=== PATIENT | female | born 1990 | race African-American/Black ===

== ENCOUNTER 2017-08-10 11:38 | Emergency (ER) | payer OTHER | END 2017-08-10 12:10 | disposition home or self-care (01) | LOC: SCSER 11:38 | DX: H60.91 Unspecified otitis externa, right ear (principal) | CPT/HCPCS: 99282 ==

== ENCOUNTER 2017-12-13 02:05 | Inpatient (IN) | payer OTHER ==
[2017-12-13] MEDS ORDERED: Morphine 4 MG/ML VIAL ONE (03:35)
[2017-12-13] MEDS ORDERED: Bisacodyl 5 MG TAB PO PRN (05:04)
[2017-12-13 05:29] VITALS: BMI 29.8
[2017-12-13] MEDS: Piperacillin/Tazobactam 3.375 GM in Sodium Chloride 0.9% 100 ML IVPB SCH ×4 (05:54→23:37)
--- NOTE | 2017-12-13 07:02 | HP ---
PRIMARY CARE PROVIDER: Spring Yuen M.D. CHIEF COMPLAINT: Abdominal pain. HISTORY OF PRESENT ILLNESS: Ms. Gaston is a pleasant 27-year-old lady who was seen at [facility] on 12/13/2017. She does not have any significant past medical history. She reports that in 09/2017, she had pneumon ia. She was advised to get a chest x-ray after treatment of pneumonia to ensure resolution. However , she did not get a repeat chest x-ray done. She was seen by her primary care provider recently and went on to have a chest x-ray on 11/28/2017. It showed dense confluent infiltrate/consolidation in t he right middle lobe. Because of the chest x-ray, she went on to have CT scan of the chest on 2017 with IV contrast, which showed large right hilar mass with postobstructive atelectasis involving primarily the right middle lobe, mediastinal adenopathy, possible liver metastases, small left pleur al effusion and a small amount of free fluid in the upper abdomen. She was seen by Pulmonology Service, Dr. Barclay yesterday. She reports that she is supposed to have a tap of pleural fluid done at 8:00 a.m. today. She went to the emergency room yesterday because of abdominal pain. She reports that over the last o ne week, she has had right upper quadrant abdominal pain, on and off, 7/10 at its worst, occasionally radiating to the lower back, not accompanied by nausea or vomiting. She reports having on and off d iarrhea. She also reports having fevers over the last 2 days and reports that her temperatures were in the 99-100 degrees Fahrenheit range. She denies any chest pain or shortness of breath. REVIEW OF SYSTEMS: All other systems reviewed and found to be negative. PAST MEDICAL HISTORY: None. PAST SURGICAL HISTORY: None. SOCIAL HISTORY: Patient reports occasional alcohol use, denies tobacco use or recreational drug use. FAMILY HISTORY: She denies family history of premature coronary artery disease. ALLERGIES: No known drug allergies. CURRENT MEDICATIONS: None. PHYSICAL EXAMINATION: GENERAL: On examination, Ms. Gaston is awake and alert, not in acute distress. VITAL SIGNS: Blood pressure is 107/70, pulse is 99, she is breathing at rate of 22 and saturating 97 % on room air. She is afebrile. When she presented to the emergency room, she had pulse of 107 and respiratory rate of 21. EYES: No scleral icterus. No conjunctival pallor. ENT: Moist mucosal membranes, no oropharyngeal erythema or exudates. NECK: Supple, nontender, normal range of movement. Trachea is midline. RESPIRATORY: Accessory muscles of breathing are not active. Chest wall movements are symmetric bila terally. LUNGS: Clear to auscultation without wheeze, rhonchi or crepitations. CARDIOVASCULAR: S1 and S2 are heard, regular. Peripheral pulses are palpable. No carotid bruit, no pericardial rub. ABDOMEN: Distended, mild right upper quadrant tenderness, no guarding or rigidity, bowel sounds hear d. SKIN: No rashes or subcutaneous nodules. NEUROLOGIC: Cranial nerves II-XII intact. Deep tendon reflexes are 2+. MUSCULOSKELETAL: Power is 5/5 in all 4 extremities. LYMPHATIC: No cervical lymphadenopathy. PSYCHIATRIC: Normal mood, normal affect, patient is oriented to person, place, and time. IMAGING DATA AND LABORATORY DATA: Ms. Gaston's labs and investigations were reviewed. She had CT sca n of the abdomen and pelvis, which showed moderate ascites, worsening right perihilar pulmonary infil trate and small left pleural effusion. She also had chest x-ray, which did not show any evidence of acute cardiopulmonary disease. She has white count of 3,300, hemoglobin decreased at 10.8, platelet count elevated at 514,000, 33% neutrophils, 36% band neutrophils, 1% metamyelocytes, 2% myelocytes, u nremarkable comprehensive metabolic profile, negative serum test. Urinalysis was positive for protein, blood, and squamous epithelial cells. HIV 1 and 2 antigen and antibody tests were nonre active. ASSESSMENT AND PLAN: Ms. Gaston is a pleasant 27-year-old lady who was seen at [facility] on 12/13/2017. Her problem list includes: 1. Sepsis: Her presentation is consistent with sepsis, suspected source of infection in the lung. She will be admitted to the hospital for further management. 2. Pneumonia: The patient has received a dose of Zosyn, which I will continue. Pulmonology Service is being consulted regarding lung mass. 3. Lung mass: Differential is wide at this point, await recommendations and further testing. 4. Hematologic abnormalities: She has myelocytes and metamyelocytes as well as band neutrophil elev ation, likely secondary to infection. I will await Oncology Service input. Many thanks for allowing me to participate in your patient's care. Please feel free to contact me wi th any questions or concerns. LEVEL OF RISK: Moderate. LEVEL OF COMPLEXITY: Moderate.
--- NOTE | 2017-12-13 08:13 | CON ---
DATE OF SERVICE: 12/12/2017 SERVICE: Pulmonary Medicine. REASON FOR CONSULTATION: Mediastinal lymphadenopathy. HISTORY OF PRESENT ILLNESS: The patient is a 27-year-old -[place] female with past medical history significant for essentially nothing until September of this year. She presented to the hospital with a fairly abrupt onset of fevers, chills, cough, congestion, and just in general not feeling very good. She got a chest x-ray demonstrating a left-sided infiltrate. She was treated for pneumonia. She was supposed to get a followup chest x-ray a couple of weeks later, but was subsequently lost to followup. Either way, she had a repeat chest x-ray that was done here just recently. On that, there was a right middle lobe pneumonia. She ended up getting a CT scan of the chest. On the CT of the chest, there was evidence of multiple abnormalities, which are discussed below. She has had a 30-pound weight loss over the past 2 months, lack of appetite. She has no personal history of cancer. She had not been having any night sweats or hemoptysis. She is, otherwise, in her usual state of health except for some abdominal discomfort that started after she started taking ibuprofen for a different issue. She has not noticed any lumps or bumps showing up anywhere in her body. PAST MEDICAL HISTORY: None. PAST SURGICAL HISTORY: None. FAMILY HISTORY: Noncontributory. She specifically denies any cancer or chronic lung problems in primary family relatives. She has no children. SOCIAL HISTORY: Negative for alcohol, tobacco, or illicit drug use. 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 She works with somebody who uses vapor in the cab of the car. That being said, she , otherwise, has no specific exposures. She denies exposure to chemicals, dust , asbestos, or tuberculosis. REVIEW OF SYSTEMS: General, head, ears, eyes, nose, throat, cardiovascular, respiratory, GI, , musculoskeletal, neurologic, and skin is negative except as mentioned in the HPI. ALLERGIES: No known drug allergies. MEDICATIONS: None. PHYSICAL EXAMINATION: VITAL SIGNS: Afebrile, pulse 120, respirations 15, saturation 98% on room air. GENERAL: The patient is awake and alert, in no apparent distress. LUNGS: Decent air entry bilaterally. There is no prolonged expiratory phase or wheezing appreciated. I cannot appreciate any dullness to percussion at the left base compared to the right. HEART: Tachycardic, regular. ABDOMEN: Soft. Diffusely tender to palpation, but it is a little worse in the epigastric region. Bowel sounds are hypoactive. MUSCULOSKELETAL: No cyanosis or clubbing. There is no pitting in the bilateral lower extremities. NEUROLOGIC: Grossly nonfocal. GENITOURINARY: No Khan. LYMPHADENOPATHY: Evaluation for cervical lymphadenopathy, axillary lymphadenopathy, and inguinal lymphadenopathy was unremarkable. IMAGING: The CT of the chest demonstrates a large right hilar mass, which likely represents lymphadenopathy resulting in compression of the right middle lobe. There is postobstructive atelectasis and/or pneumonia in that region. There is also significant mediastinal lymphadenopathy in the subcarinal and anterior tracheal areas. I do not see any specific pleural parenchymal disease , though there is a left-sided pleural effusion, which is fairly small and free flowing. There is a small amount of free-flowing fluid in the partially visualized upper abdomen. There is also a 0.8 cm diameter low density lesion in the liver. This cannot be further characterized on the basis of this study. ASSESSMENT: 1. Mediastinal lymphadenopathy. 2. Pleural effusion, not otherwise specified. 3. Pulmonary infiltrate in the right middle lobe. 4. Abdominal pain. DISCUSSION AND PLAN: The patient has already decided to go to the emergency department for her abdominal pain. As such, we will not juice standardizer her way. We are going to start with a thoracentesis. We will wait for the cytology results to come back from that. We will empirically start her on some antibiotics. We will check laboratories including a QuantiFERON gold, HIV, and [id number]. She will return to clinic next week to review the results of the cytology. If these are unremarkable, she will likely need to undergo an endoscopic bronchial ultrasound and/or a routine bronchoscopy for sampling procedures. Her differential remains wide, but top of our differential includes infectious issues and neoplastic issues. Sarcoid or other inflammatory issues remain a distant possibility. 70 minutes have been devoted to this patient in various activities. I personally reviewed all imaging studies and laboratory data noted within this document. For fifty percent of this time, I was interacting with the patient at the bedside or coordinating care with the care team. For the remainder of the time I was immediately available to the patient in the hospital unit. ORALIA
[2017-12-13] MEDS: Morphine 4 MG/ML VIAL IV PRN ×2 (09:20→16:22)
[2017-12-13] MEDS: Enoxaparin Sodium 40 MG/0.4 ML SYRINGE SC SCH (09:24)
[2017-12-13] MEDS: Acetaminophen 325 MG TAB PO PRN ×2 (09:32→21:01)
--- NOTE | 2017-12-13 10:42 | CON ---
REASON FOR CONSULTATION: Lung mass. HISTORY OF PRESENT ILLNESS: Ms. Gaston is a pleasant 27-year-old - [place]one[place] female who presented to her primary care with fever, cough and shortness of breath. She has chest x-ray done which showed dense infiltrate of the right middle lobe. She was started on antibiotics. She then had a CT scan of her chest, which showed 3.9 x 3.9 x 3 cm right hilar mass. She had postobstructive atelectasis of the right middle lobe. There was mediastinal adenopathy and a small left pleural effusion. She saw Dr. Barclay on and the plan was thoracentesis for this morning; however, she began to have abdominal discomfort, so went to the emergency room for evaluation. She had abdominal and pelvis CT, which showed no liver abnormality. She had a right kidney cyst and unremarkable spleen. She did have moderate ascites. Her reproductive organs were unremarkable. She was admitted for further evaluation. The patient admits to intermittent fevers over the last few days. She currently has temperature of 102.2. She denies any night sweats prior to development of fever. She admits to 30-pound weight loss since September. She denies any chest pain or shortness of breath. No nausea, vomiting, diarrhea or constipation. She denies any abnormal vaginal bleeding. Denies pruritus. Her primary complaint is fever and left upper quadrant abdominal pain. PAST MEDICAL HISTORY: None. PAST SURGICAL HISTORY: None. ALLERGIES: No known drug allergies. HOME MEDICATION: Naproxen p.r.n. pain. FAMILY HISTORY: Her grandfather had gastric cancer. No history of breast or ovarian cancer. SOCIAL HISTORY: She is single. No children. Occasional alcohol. Denies tobacco or illicit drug use. REVIEW OF SYSTEMS: Twelve-point review of systems is negative per HPI. PHYSICAL EXAMINATION: VITAL SIGNS: Temperature is 102.2, pulse is 101, respiratory rate 20, BP is 103 /56. She is 99% on room air. GENERAL: Well-developed, well-nourished female in no acute distress. HEENT: Normocephalic, atraumatic. Pupils equal and reactive to light. NECK: Supple. CARDIOVASCULAR: Regular rate and rhythm. LUNGS: Clear but diminished at the right base. ABDOMEN: Distended. Bowel sounds are positive. EXTREMITIES: No clubbing, cyanosis or edema. SKIN: No rash. HEMATOLOGIC: No petechia or purpura. NEUROLOGIC: Nonfocal. PSYCHIATRIC: The patient is alert and oriented and appropriate. PERTINENT LABORATORY DATA AND IMAGING DATA: Current WBCs are 3.3, hemoglobin 10.8, hematocrit 35.4, platelet count is 514,000. She has 33% neutrophils, 36% bands, 25% lymphocytes. She has 1% metamyelocytes and 2% myelocytes. Sodium is 136, potassium 3.8, chloride 104, CO2 is 23, BUN is 7, creatinine 0.84. Lactic acid is 1, calcium is 8.6, total bilirubin is 0.5, AST is 23, ALT is 18, alkaline phosphatase is 65. Serum total protein is 7.3, albumin 3.2, globulin is 4, lipase is 37, serum is negative. UA is negative. HIV is negative. Radiology per HPI. ASSESSMENT: 1. Right hilar mass with mediastinal adenopathy. 2. Postobstructive pneumonia with fever. 3. New onset ascites. 4. Left pleural effusion. DISCUSSION: Case was discussed with Dr. Krishnamurthy. Differential includes lung cancer, lymphoma or infectious process. Plan is for either a paracentesis or thoracentesis this morning for cytology and cell block. We will check a flow cytometry, peripheral smear, LDH, uric acid and CEA. Further workup will be based on the results of the lab and cytology. Thank you for the consult. We will follow her hospitalization. ORALIA
[2017-12-13 11:13] LABS: Uric Acid 3.4 mg/dL (2.6-6.0)
[2017-12-13 12:26] LABS: Band 14 % (5-11); Eosinophils 2 % (0-10); Hemoglobin 10.4 g/dL (12.0-16.0); Lymphocytes 9 % (21-51); MDiff Complete? YES; Mean Corpuscular HGB CONC 33.1 g/dL (32.0-36.0); Mean Corpuscular Volume 81.4 fl (81.0-99.0); Mean Platelet Volume 6.1 fL (7.4-10.4); Monocytes 8 % (0-10); Neutrophil 65 % (42-75); PLT Morphology Comment Appears Increased; Platelet Count 450 thou/uL (130-400); Polychromasia SLIGHT = 2-3 cells (100X) (0-2/hpf); RBC Distribution Width 12.9 % (11.5-14.5); Reactive Lymphocytes 2 % (0-10); Red Blood Cell (RBC) Count 3.86 mill/uL (4.20-5.40); White Blood Cell (WBC) Count 3.6 thou/uL (4.8-10.8)
[2017-12-13] MEDS ORDERED: Lidocaine 1% (PF) 30 ML VIAL ONE (17:03)
--- NOTE | 2017-12-13 19:39 | CON ---
DATE OF CONSULTATION: 12/13/2017 SERVICE: Pulmonary Medicine. REASON FOR CONSULTATION: Pleural effusion, mediastinal lymphadenopathy, infiltrate. HISTORY OF PRESENT ILLNESS: The patient is a 27-year-old female with recent history of a community-acquired pneumonia in left upper lobe. She got course of antibiotic. She supposed to have repeat imaging, but did end up getting this. A couple of months later, she started having some cough and congestion again with pleuritic type chest discomfort. A repeat chest x-ray was done demonstrating a right middle lobe pneumonia this time around. She underwent a CT evaluation. She had widespread mediastinal lymphadenopathy, small pleural effusion, on the left, and also a postobstructive type of pneumonia. It did not look like there is any discrete endobronchial disease identified, however. Ultimately, she saw me in clinic yesterday. She was having some abdominal discomfort and had intended to go to the emergency department. I am truthfully surprised that she ended up being admitted to the hospital. That being said, she is here and so we will continue outpatient investigation. PAST MEDICAL HISTORY: None. PAST SURGICAL HISTORY: None. SOCIAL HISTORY: Negative for alcohol, tobacco or illicit drug use. She has no exposure to chemicals, dusts, asbestos or tuberculosis. 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 The person that she rides with frequently smokes vapor in the cab. ALLERGIES: No known drug allergies. MEDICATIONS: List of her inpatient medications were reviewed. No specific updates were made at this time. REVIEW OF SYSTEMS: General, head, ears, eyes, nose, throat, cardiovascular, respiratory, GI, , musculoskeletal, neurologic and skin is negative except as mentioned in the HPI. PHYSICAL EXAMINATION: VITAL SIGNS: The T-max 102.2, pulse 100, blood pressure 104/74, respirations 18 , saturation 100% on room air. GENERAL: The patient is awake and alert, no apparent distress. LUNGS: Decent air entry. There is no prolonged expiratory phase, wheezing, rhonchi, or crackles present. HEART: Normal rate, regular. ABDOMEN: Soft. Tender to palpation. There is no rebound or guarding. MUSCULOSKELETAL: No cyanosis or clubbing. There is no pitting in the bilateral lower extremities. NEUROLOGIC: Grossly nonfocal. LABORATORY DATA: WBC 3.6, hemoglobin 10.4, platelets 450,000. Band count is 14 %. CEA is 1.42, LDH is elevated, uric acid level is normal. Basic metabolic profile and liver function studies are essentially unremarkable. BNP is normal. Lipase is normal. Serum is also unremarkable. Urinalysis is unremarkable. HIV 1 and [address] of the abdomen and pelvis demonstrates ascites, but otherwise no acute intra-abdominal abnormality other than a small lesion in the liver. 2. Recent CT of the chest demonstrates mediastinal lymphadenopathy, small left- sided pleural effusion, and an infiltrate that appears to be a postobstructive. I am looking for endobronchial disease, but it looks like it is more of an extrinsic compression of the airway resulting in the infiltrate. ASSESSMENT: 1. Mediastinal lymphadenopathy. 2. Right middle lobe atelectasis with possible postobstructive pneumonia. 3. Left-sided pleural effusion, small. 4. Ascites. 5. Liver cyst, small. 6. Abdominal pain. PLAN: The patient's HIV was unremarkable. She had a T-spot that is currently pending. We will proceed with paracentesis. We carefully send this for AFB smear and culture, fungal stain and culture, routine Gram stain and culture, and cytology. Multiple other studies can be done if necessary. If this is unremarkable, bronchoscopy will be done. We will look for any intrinsic disease of the airway. If not seen, we will need to refer her for mediastinoscopy. Pulmonary Critical Care will continue to follow along in this location. 70 minutes have been devoted to this patient in various activities. I personally reviewed all imaging studies and laboratory data noted within this document. For fifty percent of this time, I was interacting with the patient at the bedside or coordinating care with the care team. For the remainder of the time I was immediately available to the patient in the hospital unit. ORALIA
[2017-12-13 20:15] LABS: Fluid, Protein 4.8 g/dL (Not Available)
[2017-12-13 20:21] LABS: BF Color Yellow; Body Fluid Source PERITONEAL FLUID; Clarity Hazy (Clear); Tube # EDTA; WBC Background Count 0.01
[2017-12-13 20:22] LABS: WBC/NonHematic-Auto 1800 /cumm
[2017-12-13 20:25] LABS: BF RBC Count - Manual 5175 /cumm
[2017-12-13 20:47] LABS: BF Segmented Neutrophils 18 %; Cell Count Non Hematic 29 %; Lymphocytes 50 %
--- NOTE | 2017-12-14 00:37 | OP-2 ---
PARACENTESIS PROCEDURE NOTE INDICATION: Ascites, diagnostic and therapeutic. PROCEDURE STORE STOCKER: Dr. Joseline Morillo. ATTENDING PHYSICIAN: Dr. Mynor Barclay who was in attendance during the entire procedure. Ultrasound was used to sumeet the location prior to procedure and a large pocket of fluid was visualized. CONSENT: Consent was obtained from Ms. Gaston prior to the procedure. Indication, risks and benefits were explained at length. PROCEDURE SUMMARY: A timeout was performed. My hands were washed immediately prior to the procedure. Sterile precautions were taken and sterile gloves were worn throughout the entire procedure. The right lateral aspect of the abdomen was prepped and draped in the sterile fashion using chlorhexidine scrub. Lidocaine 1% was used to numb the skin, soft tissue and peritoneum in a Z-track fashion. The [id number] catheter was inserted using the Z-line technique and advanced with negative pressure until straw colored cloudy fluid was aspirated. Approximately 150 mL of ascitic fluid was collected and sent for laboratory analysis. The catheter was then connected to the drainage bag and an additional 1800 mL of ascitic fluid were drained. The catheter was removed and no leaking fluid was noted. A Band-Aid was placed over the puncture wound. The patient tolerated the procedure well without any immediate complications. Estimated blood loss was less than 1 mL. Again, Dr. Mynor Barclay was present during the entire procedure. [facility]OO[facility]IAL HOSPITALNikolai
[2017-12-14] MEDS: Acetaminophen 325 MG TAB PO PRN ×2 (05:20→16:05)
[2017-12-14] MEDS: Piperacillin/Tazobactam 3.375 GM in Sodium Chloride 0.9% 100 ML IVPB SCH ×2 (05:20→12:36)
[2017-12-14 05:28] LABS: Anion Gap 10 mmol/L (10-20); BUN (Urea Nitrogen) 8 mg/dL (7.0-18.7); Calc. Creatinine Clearance 148 mL/min (70-130); Calcium 7.9 mg/dL (7.8-10.44); Carbon Dioxide 24 mmol/L (22-29); Chloride 104 mmol/L (98-107); Estimated GFR-MDRD Greater than 90; Glucose 87 mg/dL (70-105); Potassium 3.8 mmol/L (3.5-5.1); Sodium 134 mmol/L (136-145)
[2017-12-14 06:07] LABS: Anisocytosis SLIGHT = 6-15 cells (100X) (0-5/hpf); Band 4 % (5-11); Bite Cells SLIGHT = 2-5 cells (100X) (0-1/hpf); Eosinophils 2 % (0-10); Hemoglobin 10.2 g/dL (12.0-16.0); Lymphocytes 12 % (21-51); MDiff Complete? YES; Mean Corpuscular HGB CONC 32.4 g/dL (32.0-36.0); Mean Corpuscular Hemoglobin 26.3 pg (27.0-31.0); Mean Corpuscular Volume 81.3 fl (81.0-99.0); Mean Platelet Volume 6.2 fL (7.4-10.4); Monocytes 11 % (0-10); Neutrophil 70 % (42-75); Platelet Count 410 thou/uL (130-400); RBC Distribution Width 12.9 % (11.5-14.5); Reactive Lymphocytes 1 % (0-10); Red Blood Cell (RBC) Count 3.87 mill/uL (4.20-5.40); White Blood Cell (WBC) Count 4.2 thou/uL (4.8-10.8)
[2017-12-14] MEDS: Enoxaparin Sodium 40 MG/0.4 ML SYRINGE SC SCH (09:26)
--- NOTE | 2017-12-14 16:37 | PRG ---
DATE OF SERVICE: 12/14/2017 SERVICE: Pulmonary Medicine. INTERVAL HISTORY: The patient is doing fine from a respiratory standpoint. The abdominal sensation improved significantly after she ended up with a paracentesis. We are waiting on results of that fara dy. If this thing is not fruitful, we will proceed with bronchoscopy. We discussed that with the gustavo mitchell today. If we do not get an answer with bronchoscopy, mediastinoscopy will be pursued. She und erstands the plan of action moving forward. PHYSICAL EXAMINATION: VITAL SIGNS: Currently afebrile with a T-max of 102.2. Pulse 98, blood pressure 124/83, respiration s 18, saturation 100% on room air. GENERAL: The patient is awake, alert, no apparent distress. LUNGS: Excellent air entry. No prolonged expiratory phase, wheezing, rhonchi or crackles are apprec iated. HEART: Normal rate and regular. ABDOMEN: Soft. There is no firmness or tenderness. There is no longer distention secondary to asci deepti. Bowel sounds are present. : No Khan. NEUROLOGIC: Grossly nonfocal. LABORATORY DATA: Basic metabolic profile is essentially unremarkable. Serum total protein is 6.7, L DH 381, uric acid 3.4. WBC 4.2, hemoglobin 10.2 and platelets 410,000. Peritoneal fluid is positive for a total protein that is elevated and glucose of 65. There is lymphocyte predominant fluid and t here are multiple nonhematologic cells identified. Body fluid culture is negative to date. Patholog y is currently pending. ASSESSMENT: 1. Mediastinal lymphadenopathy. 2. Right middle lobe atelectasis with possible postobstructive pneumonia. 3. Left-sided pleural effusion, small. 4. Ascites, status post paracentesis. 5. Liver cysts, small. 6. Abdominal pain, resolved with paracentesis. DISCUSSION AND PLAN: We will await the results on the paracentesis. If cytology is unremarkable, a bronchoscopy will be done, but if I do not see any endobronchial disease to biopsy, she will need a m ediastinoscopy. If the pathology is negative on Sunday, we will proceed with bronchoscopy Sunday if she has been without food for long enough time, or Sunday morning. Pulmonary will continue to follow intermittently during this hospital stay.
[2017-12-14] MEDS: Amoxicillin/Potassium Clav 875 MG TAB PO SCH (19:51)
[2017-12-14] MEDS: HYDROcodone/Acetaminophen 7.5/325 mg Tablet PO PRN (23:41)
[2017-12-15] MEDS: HYDROcodone/Acetaminophen 7.5/325 mg Tablet PO PRN ×2 (03:25→15:02)
[2017-12-15] MEDS: Amoxicillin/Potassium Clav 875 MG TAB PO SCH ×2 (08:16→20:31)
[2017-12-15] MEDS: Enoxaparin Sodium 40 MG/0.4 ML SYRINGE SC SCH (08:16)
[2017-12-15] MEDS: Acetaminophen 325 MG TAB PO PRN ×2 (11:28→20:31)
--- NOTE | 2017-12-15 11:41 | PDOC.PN ---
- Subjective Encounter Start Date: 12/14/17 Encounter Start Time: 12:00 Patient is seen today, alert and oriented. She is wanting to go home, Discussed with mother at bedside, pt will need Clearance from Pulmonary as there is plan for bronchoscopy. - Objective MAR Reviewed: Yes Vital Signs & Weight: Vital Signs (12 hours) Temp Pulse Resp BP BP Pulse Ox 12/15/17 11:29 102.5 F H 12/15/17 07:34 97.6 F 94 18 109/75 100 12/15/17 04:00 98.6 F 94 16 12/15/17 00:00 99.5 F 110 H 18 115/78 99 Weight Admit Weight 196 lb 3.382 oz Weight 196 lb 3.382 oz I&O: 12/14/17 12/15/17 12/16/17 06:59 06:59 06:59 Intake Total 390 Balance 390 Result Diagrams: 12/14/17 04:39 12/14/17 04:39 Radiology Reviewed by me: Yes Phys Exam - Physical Examination HEENT: PERRLA, moist MMs Neck: no nodes, no JVD Respiratory: no wheezing, no rales Cardiovascular: RRR, no significant murmur Gastrointestinal: soft, non-tender Musculoskeletal: no edema, pulses present Dx/Plan (1) Post obstructive pneumonia Status: Acute Comment: PT is On IV antibiotics, Will continue at this time, Likely post Obstrutive from Hilar Mass which is highly suggestive of malignanacy until proven otherwise. Blood Cultures pending. (2) Mediastinal lymphadenopathy Code(s): R59.0 - LOCALIZED ENLARGED LYMPH NODES Status: Acute Comment: Dr. vandana villanueva following, TSpot pending to r/o TB, Candido villanueva monitor, plans for bronch on sunday. (3) Sepsis Code(s): A41.9 - SEPSIS, UNSPECIFIED ORGANISM Status: Acute Comment: Stbale on IV antibitoics, on IV fluids. (4) Ascites Code(s): R18.8 - OTHER ASCITES Status: Acute Comment: Following paracentesis , Fluid sent for culture and cytology, pain is better now, less bloated. (5) Abdominal pain Code(s): R10.9 - UNSPECIFIED ABDOMINAL PAIN Status: Acute Comment: Improved now. - Plan cont current plan of care, plan discussed w/ family, continue antibiotics, PT/OT , social economist, respiratory therapy, incentive spirometry, out of bed/ ambulate, DVT proph w/lovenox * . Review of Systems - Review of Systems Constitutional: fever Eyes: negative: Pain, Vision Change, Conjunctivae Inflammation, Eyelid Inflammation, Redness, Other ENT: negative: Ear Pain, Ear Discharge, Nose Pain, Nose Discharge, Nose Congestion, Mouth Pain, Mouth Swelling, Throat Pain, Throat Swelling, Other Respiratory: Cough, Shortness of Breath, SOB with Excertion, Pleuritic Pain Cardiovascular: negative: chest pain, palpitations, orthopnea, paroxysmal nocturnal dyspnea, edema, light headedness, other Gastrointestinal: negative: Nausea, Vomiting, Abdominal Pain, Diarrhea, Constipation, Melena, Hematochezia, Other Musculoskeletal: negative: Neck Pain, Shoulder Pain, Arm Pain, Back Pain, Hand Pain, Leg Pain, Foot Pain, Other - Medications/Allergies Allergies/Adverse Reactions: Allergies Allergy/AdvReac Type Severity Reaction Status Date / Time No Known Drug Allergies Allergy Verified 12/13/17 05:03 Medications: Current Medications Acetaminophen (Tylenol) 650 mg PO Q4H PRN PRN Reason: Headache/Fever or Pain Last Admin: 12/15/17 11:28 Dose: 650 mg Hydrocodone Bitart/Acetaminophen ([place] 7.5/325) 1 tab PO Q4H PRN PRN Reason: Pain Last Admin: 12/15/17 03:25 Dose: 1 tab Amoxicillin/Clavulanate Potassium (Augmentin) 875 mg PO Q12HR [facility] Last Admin: 12/15/17 08:16 Dose: 875 mg Bisacodyl (Dulcolax) 10 mg PO DAILYPRN PRN PRN Reason: Constipation Enoxaparin Sodium (Lovenox) 40 mg SC 0900 [facility] Last Admin: 12/15/17 08:16 Dose: 40 mg Sodium Chloride (Flush - Normal Saline) 10 ml IVF Q12HR [facility] Last Admin: 12/15/17 08:16 Dose: Not Given Sodium Chloride (Flush - Normal Saline) 10 ml IVF PRN PRN PRN Reason: Saline Flush Last Admin: 12/13/17 18:42 Dose: 10 ml
--- NOTE | 2017-12-15 14:05 | PRG ---
DATE OF SERVICE: 12/15/2017 SUBJECTIVE: Ms. Radha Gaston has no complaints. She denies shortness of breath. She has been febri le today. OBJECTIVE: VITAL SIGNS: Heart rate is up to 118 with her fever, it is 94 when she is afebrile, respiratory rate is 22 with her fever, 18 before, room air sats 99, blood pressure is 108/70. LUNGS: Clear. HEART: Regular rhythm. ABDOMEN: Soft and distended. LABORATORY DATA: She has undergone a paracentesis, which shows the fluid to be exudative with protei n of 4.8 grams, glucose is 65 and 5175 red cells. Electrolytes yesterday were unremarkable. White count 4.2, hemoglobin 10.2, platelets 410,000. She has 70% neutrophils, 4% bands yesterday. IMPRESSION AND PLAN: We reviewed CT scan. She has extensive mediastinal lymphadenopathy with more l ymph nodes on the right hilum. I suspect her radiographic abnormalities are secondary to extrinsic c ompression on the right. Pathology on peritoneal fluid is pending. If this is negative, probably th e quickest diagnosis would be a mediastinoscopy. We will continue to follow with the other physician s caring for her.
--- NOTE | 2017-12-15 15:36 | PDOC.PN ---
- Subjective Encounter Start Date: 12/15/17 Encounter Start Time: 13:00 pPatient is seen today, alert and oriented. No other Concerns noted. She is waiitng for bronchoscopy on sunday. - Objective Vital Signs & Weight: Vital Signs (12 hours) Temp Pulse Resp BP Pulse Ox 12/15/17 15:09 98.5 F 109 H 18 108/71 96 12/15/17 11:41 102.6 F H 118 H 22 H 108/70 99 12/15/17 11:29 102.5 F H 12/15/17 07:34 97.6 F 94 18 109/75 100 12/15/17 04:00 98.6 F 94 16 Weight Admit Weight 196 lb 3.382 oz Weight 196 lb 3.382 oz I&O: 12/14/17 12/15/17 12/16/17 06:59 06:59 06:59 Intake Total 390 Balance 390 Result Diagrams: 12/14/17 04:39 12/14/17 04:39 Radiology Reviewed by me: Yes Phys Exam - Physical Examination HEENT: PERRLA, moist MMs Neck: no nodes, no JVD Respiratory: no wheezing, no rales Cardiovascular: no significant murmur Gastrointestinal: soft, non-tender Musculoskeletal: no edema, pulses present Neurological: non-focal, normal sensation Lymphatic: no nodes Psychiatric: normal affect, A&O x 3 Dx/Plan (1) Post obstructive pneumonia Status: Acute Comment: PT is On IV antibiotics, Will continue at this time, Likely post Obstrutive from Hilar Mass which is highly suggestive of malignanacy until proven otherwise. Blood Cultures pending. (2) Mediastinal lymphadenopathy Code(s): R59.0 - LOCALIZED ENLARGED LYMPH NODES Status: Acute Comment: Dr. vandana villanueva following, TSpot pending to r/o TB, Candido villanueva monitor, plans for bronch on sunday. (3) Sepsis Code(s): A41.9 - SEPSIS, UNSPECIFIED ORGANISM Status: Acute Comment: Stbale on IV antibitoics, on IV fluids. (4) Ascites Code(s): R18.8 - OTHER ASCITES Status: Acute Comment: Following paracentesis , Fluid sent for culture and cytology, pain is better now, less bloated. (5) Abdominal pain Code(s): R10.9 - UNSPECIFIED ABDOMINAL PAIN Status: Acute Comment: Improved now. (6) Constipation Code(s): K59.00 - CONSTIPATION, UNSPECIFIED Status: Acute Comment: Will do lactulose 20gm BID. - Plan cont current plan of care, plan discussed w/ family, continue antibiotics, PT/OT , bilingual social worker, incentive spirometry, out of bed/ambulate, DVT proph w/ lovenox * . Review of Systems - Review of Systems Eyes: negative: Pain, Vision Change, Conjunctivae Inflammation, Eyelid Inflammation, Redness, Other ENT: negative: Ear Pain, Ear Discharge, Nose Pain, Nose Discharge, Nose Congestion, Mouth Pain, Mouth Swelling, Throat Pain, Throat Swelling, Other Respiratory: negative: Cough, Dry, Shortness of Breath, Hemoptysis, SOB with Excertion, Pleuritic Pain, Sputum, Wheezing Cardiovascular: negative: chest pain, palpitations, orthopnea, paroxysmal nocturnal dyspnea, edema, light headedness, other Gastrointestinal: negative: Nausea, Vomiting, Abdominal Pain, Diarrhea, Constipation, Melena, Hematochezia, Other - Medications/Allergies Allergies/Adverse Reactions: Allergies Allergy/AdvReac Type Severity Reaction Status Date / Time No Known Drug Allergies Allergy Verified 12/13/17 05:03 Medications: Current Medications Acetaminophen (Tylenol) 650 mg PO Q4H PRN PRN Reason: Headache/Fever or Pain Last Admin: 12/15/17 11:28 Dose: 650 mg Hydrocodone Bitart/Acetaminophen ([place] 7.5/325) 1 tab PO Q4H PRN PRN Reason: Pain Last Admin: 12/15/17 15:02 Dose: 1 tab Amoxicillin/Clavulanate Potassium (Augmentin) 875 mg PO Q12HR [facility] Last Admin: 12/15/17 08:16 Dose: 875 mg Bisacodyl (Dulcolax) 10 mg PO DAILYPRN PRN PRN Reason: Constipation Enoxaparin Sodium (Lovenox) 40 mg SC 0900 [facility] Last Admin: 12/15/17 08:16 Dose: 40 mg Lactulose (Lactulose) 20 gm PO BID [facility] Sodium Chloride (Flush - Normal Saline) 10 ml IVF Q12HR [facility] Last Admin: 12/15/17 08:16 Dose: Not Given Sodium Chloride (Flush - Normal Saline) 10 ml IVF PRN PRN PRN Reason: Saline Flush Last Admin: 12/13/17 18:42 Dose: 10 ml
[2017-12-16] MEDS: HYDROcodone/Acetaminophen 7.5/325 mg Tablet PO PRN ×3 (00:32→20:56)
[2017-12-16] MEDS: Acetaminophen 325 MG TAB PO PRN ×2 (08:35→16:57)
[2017-12-16] MEDS: Enoxaparin Sodium 40 MG/0.4 ML SYRINGE SC SCH (08:35)
[2017-12-16] MEDS: Amoxicillin/Potassium Clav 875 MG TAB PO SCH ×2 (08:35→20:56)
[2017-12-16] MEDS ORDERED: Sodium Chloride 0.9% 1,000 ML IV SCH (10:45)
--- NOTE | 2017-12-16 12:43 | PRG ---
DATE OF SERVICE: 12/16/2017 SUBJECTIVE: Ms. Gaston has no more complaints. She is still having intermittent temperature spikes. OBJECTIVE: VITAL SIGNS: Heart rate is 109, respiratory rate is 18. She gets tachycardic when she is febrile. Oximetry is 97% on room air. Blood pressure 118/78. LUNGS: Clear. CARDIOVASCULAR: Regular rhythm. ABDOMEN: Still distended, nontender. We are awaiting peritoneal fluid pathology. If negative, the workup will continue.
--- NOTE | 2017-12-16 16:55 | PDOC.PN ---
- Subjective Encounter Start Date: 12/16/17 Encounter Start Time: 17:03 Patient seen and examined today. Admitted for hilar mass/post obstructive PNA. - Objective Vital Signs & Weight: Vital Signs (12 hours) Temp Pulse Resp BP BP Pulse Ox 12/16/17 11:52 99.5 F 109 H 18 118/78 97 12/16/17 08:00 99.5 F 109 H 18 105/71 97 Weight Admit Weight 196 lb 3.382 oz Weight 196 lb 3.382 oz I&O: 12/15/17 12/16/17 12/17/17 06:59 06:59 06:59 Intake Total 480 Balance 480 Result Diagrams: 12/14/17 04:39 12/14/17 04:39 Phys Exam - Physical Examination Constitutional: NAD HEENT: PERRLA, moist MMs, sclera anicteric, oral pharynx no lesions Neck: supple, full ROM Respiratory: no wheezing, no rales, no rhonchi, clear to auscultation bilateral Cardiovascular: RRR, no significant murmur, no rub Gastrointestinal: soft, non-tender, no distention, positive bowel sounds Musculoskeletal: no edema, pulses present Neurological: non-focal, moves all 4 limbs Dx/Plan (1) Post obstructive pneumonia Status: Acute Comment: Stable. Continue PO antibiotics. (2) Ascites Code(s): R18.8 - OTHER ASCITES Status: Acute Qualifiers: Ascites type: other type Qualified Code(s): R18.8 - Other ascites Comment: Following paracentesis, Fluid sent for culture and cytology, pain is better now, less bloated. (3) Constipation Code(s): K59.00 - CONSTIPATION, UNSPECIFIED Status: Resolved (4) Mediastinal lymphadenopathy Code(s): R59.0 - LOCALIZED ENLARGED LYMPH NODES Status: Acute Comment: Dr. vandana villanueva following, TSpot pending to r/o TB, Candido villanueva monitor, plans for bronch on sunday. - Plan cont current plan of care, continue antibiotics, respiratory therapy Awaiting Bronchoscopy- scheduled for tomorrow. Review of Systems - Medications/Allergies Allergies/Adverse Reactions: Allergies Allergy/AdvReac Type Severity Reaction Status Date / Time No Known Drug Allergies Allergy Verified 12/13/17 05:03 Medications: Current Medications Acetaminophen (Tylenol) 650 mg PO Q4H PRN PRN Reason: Headache/Fever or Pain Last Admin: 12/16/17 08:35 Dose: 650 mg Hydrocodone Bitart/Acetaminophen ([place] 7.5/325) 1 tab PO Q4H PRN PRN Reason: Pain Last Admin: 12/16/17 12:44 Dose: 1 tab Amoxicillin/Clavulanate Potassium (Augmentin) 875 mg PO Q12HR [facility] Last Admin: 12/16/17 08:35 Dose: 875 mg Bisacodyl (Dulcolax) 10 mg PO DAILYPRN PRN PRN Reason: Constipation Enoxaparin Sodium (Lovenox) 40 mg SC 0900 [facility] Last Admin: 12/16/17 08:35 Dose: 40 mg Lactulose (Lactulose) 20 gm PO BID [facility] Last Admin: 12/16/17 08:36 Dose: Not Given Sodium Chloride (Flush - Normal Saline) 10 ml IVF Q12HR [facility] Last Admin: 12/16/17 08:36 Dose: Not Given Sodium Chloride (Flush - Normal Saline) 10 ml IVF PRN PRN PRN Reason: Saline Flush Last Admin: 12/13/17 18:42 Dose: 10 ml
[2017-12-16] MEDS ORDERED: traMADol HCl 50 MG TAB PO PRN (19:40)
[2017-12-16] MEDS ORDERED: Ibuprofen 800 MG TAB PO SCH (20:00)
[2017-12-17] MEDS: HYDROcodone/Acetaminophen 7.5/325 mg Tablet PO PRN ×2 (03:18→15:12)
[2017-12-17 04:50] LABS: Anion Gap 12 mmol/L (10-20); BUN (Urea Nitrogen) 8 mg/dL (7.0-18.7); Calc. Creatinine Clearance 167 mL/min (70-130); Calcium 8.4 mg/dL (7.8-10.44); Carbon Dioxide 25 mmol/L (22-29); Chloride 102 mmol/L (98-107); Estimated GFR-MDRD Greater than 90; Glucose 108 mg/dL (70-105); Potassium 3.6 mmol/L (3.5-5.1); Sodium 135 mmol/L (136-145)
[2017-12-17 05:13] LABS: Band 16 % (5-11); Hemoglobin 10.7 g/dL (12.0-16.0); Lymphocytes 16 % (21-51); MDiff Complete? YES; Mean Corpuscular HGB CONC 32.8 g/dL (32.0-36.0); Mean Corpuscular Volume 82.2 fl (81.0-99.0); Mean Platelet Volume 6.4 fL (7.4-10.4); Monocytes 11 % (0-10); Neutrophil 57 % (42-75); PLT Morphology Comment Appears Increased; Platelet Count 476 thou/uL (130-400); RBC Distribution Width 12.9 % (11.5-14.5); Red Blood Cell (RBC) Count 3.98 mill/uL (4.20-5.40); White Blood Cell (WBC) Count 4.4 thou/uL (4.8-10.8)
[2017-12-17] MEDS: Enoxaparin Sodium 40 MG/0.4 ML SYRINGE SC SCH (07:45)
[2017-12-17] MEDS: Amoxicillin/Potassium Clav 875 MG TAB PO SCH ×2 (07:45→20:35)
[2017-12-17] MEDS: Acetaminophen 325 MG TAB PO PRN ×2 (07:46→20:35)
--- NOTE | 2017-12-17 13:03 | PDOC.PN ---
- Subjective Encounter Start Date: 12/17/17 Encounter Start Time: 13:09 Patient seen and examined today. Admitted for hilar mass/post obstructive PNA. No new complaints. No acute events overnight. - Objective MAR Reviewed: Yes Vital Signs & Weight: Vital Signs (12 hours) Temp Pulse Resp BP BP Pulse Ox 12/17/17 11:03 99.2 F 100 18 105/70 96 12/17/17 08:00 102.4 F H 128 H 18 98 12/17/17 06:55 102.4 F H 128 H 18 131/84 99 12/17/17 04:10 97 F L 110 H 18 126/83 97 12/17/17 01:05 97.6 F 102 H 18 101/71 Weight Admit Weight 196 lb 3.382 oz Weight 196 lb 3.382 oz I&O: 12/16/17 12/17/17 12/18/17 06:59 06:59 06:59 Intake Total 480 610 Balance 480 610 Result Diagrams: 12/17/17 03:49 12/17/17 03:49 Phys Exam - Physical Examination Constitutional: NAD HEENT: PERRLA, moist MMs, sclera anicteric, oral pharynx no lesions Neck: no JVD, supple, full ROM Respiratory: no wheezing, no rales, no rhonchi, clear to auscultation bilateral Cardiovascular: RRR, no significant murmur, no rub Gastrointestinal: soft, non-tender, positive bowel sounds distention. Musculoskeletal: no edema, pulses present Neurological: non-focal, moves all 4 limbs Psychiatric: normal affect, A&O x 3 Skin: no rash, normal turgor Dx/Plan (1) Post obstructive pneumonia Status: Acute Comment: Stable. Continue antibiotics. f/u repeat blood cultures. (2) Ascites Code(s): R18.8 - OTHER ASCITES Status: Acute Qualifiers: Ascites type: other type Qualified Code(s): R18.8 - Other ascites Comment: Stable Following paracentesis, Fluid sent for culture and cytology. f/ u cultures. (3) Mediastinal lymphadenopathy Code(s): R59.0 - LOCALIZED ENLARGED LYMPH NODES Status: Acute Comment: Stable. Being followed by pulmonary an might need a bronchoscopy. Will f/u with pulmonary service. TSpot pending to r/o TB. - Plan cont current plan of care, out of bed/ambulate * . Review of Systems - Review of Systems Constitutional: fever - Medications/Allergies Allergies/Adverse Reactions: Allergies Allergy/AdvReac Type Severity Reaction Status Date / Time No Known Drug Allergies Allergy Verified 12/13/17 05:03 Medications: Current Medications Acetaminophen (Tylenol) 650 mg PO Q4H PRN PRN Reason: Headache/Fever or Pain Last Admin: 12/17/17 07:46 Dose: 650 mg Hydrocodone Bitart/Acetaminophen ([place] 7.5/325) 1 tab PO Q4H PRN PRN Reason: Pain Last Admin: 12/17/17 03:18 Dose: 1 tab Amoxicillin/Clavulanate Potassium (Augmentin) 875 mg PO Q12HR [facility] Last Admin: 12/17/17 07:45 Dose: 875 mg Bisacodyl (Dulcolax) 10 mg PO DAILYPRN PRN PRN Reason: Constipation Enoxaparin Sodium (Lovenox) 40 mg SC 0900 [facility] Last Admin: 12/17/17 07:45 Dose: 40 mg Lactulose (Lactulose) 20 gm PO BID [facility] Last Admin: 12/17/17 07:46 Dose: 20 gm Sodium Chloride (Flush - Normal Saline) 10 ml IVF Q12HR [facility] Last Admin: 12/17/17 08:39 Dose: 10 ml Sodium Chloride (Flush - Normal Saline) 10 ml IVF PRN PRN PRN Reason: Saline Flush Last Admin: 12/13/17 18:42 Dose: 10 ml Tramadol HCl (Ultram) 50 mg PO Q6H PRN PRN Reason: Moderate Pain (4-6)
--- NOTE | 2017-12-17 16:07 | PRG ---
DATE OF SERVICE: 12/17/2017 SERVICE: Pulmonary Medicine. INTERVAL HISTORY: The patient is doing fine from a respiratory standpoint. She denies any abdominal discomfort, fevers, chills, nausea or vomiting. She is essentially in chronic stable state. The cy tology was essentially unremarkable at this time. As such, we are going to need move on to a differe nt procedure. PHYSICAL EXAMINATION: VITAL SIGNS: Currently afebrile with a T-max of 102.4, pulse 100, blood pressure 105/70, respiration s 18, saturation 96% on room air. GENERAL: The patient is awake and alert, in no apparent distress. LUNGS: Decent air entry without prolonged expiratory phase, wheezing, rhonchi, or crackles present. HEART: Normal rate, regular. ABDOMEN: Soft, nontender, nondistended. Bowel sounds are positive. MUSCULOSKELETAL: No cyanosis or clubbing. There is no pitting in the bilateral lower extremities. NEUROLOGIC: Grossly nonfocal. LABORATORY DATA: Pathology was negative for cancer. AFB smear was also unremarkable. Flow cytometr y demonstrates no evidence of a neoplastic leukocyte population in the analyze sample. Blood culture s x2 are unremarkable. Body fluid culture is also negative. ASSESSMENT: 1. Mediastinal lymphadenopathy. 2. Right middle lobe atelectasis with possible obstructive pneumonia. 3. Left-sided pleural effusion, small. 4. Ascites, status post paracentesis, negative for malignancy. 5. Liver cysts, small. 6. Abdominal pain, resolved following paracentesis. DISCUSSION AND PLAN: I will do a bronchoscopy. If is unremarkable, patient will likely need to unde rgo a mediastinoscopy with an excision of lymph node to get an answer here. I will feed her for now. We will make her n.p.o. after midnight and see if we can coordinate an operation with surgery.
[2017-12-17] MEDS: Piperacillin/Tazobactam 3.375 GM in Sodium Chloride 0.9% 100 ML IVPB SCH (22:27)
[2017-12-18] MEDS: HYDROcodone/Acetaminophen 7.5/325 mg Tablet PO PRN ×2 (00:14→05:43)
--- NOTE | 2017-12-18 00:34 | CON ---
DATE OF CONSULTATION: 12/17/2017 HISTORY OF PRESENT ILLNESS: Ms. Gaston is a 27-year-old woman who has presented with right middle lob e atelectasis from bronchial compression. She has extensive mediastinal adenopathy and ascites. She had a peritoneal tap, which has not been helpful in diagnosis. She is to undergo bronchoscopy tomor row and if there is no endobronchial component, we will plan for mediastinoscopy for biopsy of her ex tensive mediastinal mass. She has lost 30 pounds over the last couple of months. She has had fever and chills. She has no oth er past medical history. PAST MEDICAL HISTORY: None. PAST SURGICAL HISTORY: None. SOCIAL HISTORY: She does not use alcohol, tobacco, or illicit drugs. 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 REVIEW OF SYSTEMS: Otherwise negative. PHYSICAL EXAMINATION: GENERAL: She is a well-developed, well-nourished young lady resting comfortably in bed. VITAL SIGNS: Height 5 feet 8 inches, weight 196 pounds, temperature is 101, pulse is 110 and regular , blood pressure is 111/75. NECK: Supple without palpable adenopathy. There is no supraclavicular or infraclavicular adenopathy . There is no axillary adenopathy. CHEST: Clear bilaterally. HEART: Rhythm is regular. ABDOMEN: Soft, nontender. VASCULAR: She has fluid wave. EXTREMITIES: No edema. ASSESSMENT AND PLAN: Extensive mediastinal adenopathy in a young lady concerning for lymphoma. Plan is as above.
[2017-12-18] MEDS: Piperacillin/Tazobactam 3.375 GM in Sodium Chloride 0.9% 100 ML IVPB SCH ×4 (05:00→20:20)
[2017-12-18 06:22] LABS: Band 3 % (5-11); Hemoglobin 10.8 g/dL (12.0-16.0); Hypochromia SLIGHT = 6-15 cells (100X) (0-5/hpf); Lymphocytes 11 % (21-51); MDiff Complete? YES; Mean Corpuscular HGB CONC 31.9 g/dL (32.0-36.0); Mean Corpuscular Volume 81.4 fl (81.0-99.0); Mean Platelet Volume 6.4 fL (7.4-10.4); Monocytes 6 % (0-10); Neutrophil 79 % (42-75); PLT Morphology Comment Appears Increased; Platelet Count 487 thou/uL (130-400); Red Blood Cell (RBC) Count 4.15 mill/uL (4.20-5.40); White Blood Cell (WBC) Count 5.3 thou/uL (4.8-10.8)
[2017-12-18] MEDS ORDERED: Midazolam HCl 2 mg/2 ml Vial ONE (08:58)
[2017-12-18] MEDS ORDERED: Fentanyl 250 MCG/5 ML VIAL ONE (09:02)
--- NOTE | 2017-12-18 09:10 | PRG ---
DATE OF SERVICE: 12/18/2017 SERVICE: Pulmonary Medicine. INTERVAL HISTORY: The patient is doing fine from a respiratory standpoint. She is breathing comfort ably. She has no chest discomfort, nausea or vomiting. Her abdominal discomfort is coming back once again. Otherwise, there has been no interval change to her condition. PHYSICAL EXAMINATION: VITAL SIGNS: T-max 102.7, pulse 107, blood pressure 105/70, respirations 20, saturation 95% on room air. GENERAL: The patient is awake and alert, in no apparent distress. LUNGS: Excellent air entry. There is no prolonged expiratory phase or wheezing present. HEART: Normal rate, regular. ABDOMEN: Soft, nontender, nondistended. Bowel sounds are positive. MUSCULOSKELETAL: No cyanosis or clubbing. There is no pitting in the bilateral lower extremities. NEUROLOGIC: Grossly nonfocal. LABORATORY DATA: CBC is grossly unremarkable/stable with a white blood cell count of 5.3. All cultu res are negative to date. Body fluid culture is negative. Blood culture x2 are unremarkable. ASSESSMENT: 1. Mediastinal lymphadenopathy. 2. Right middle lobe atelectasis with post-obstructive pneumonia. 3. Left-sided pleural effusion, small. 4. Ascites, status post paracentesis, negative for AFB, or malignancy. 5. Liver cyst, small. DISCUSSION AND PLAN: We will do a bronchoscopy. If there is endobronchial disease, biopsy will be o btained. Otherwise, we will just simply get a BAL from the right middle lobe. If there is no endobr onchial disease, we will convert to mediastinoscopy. Pulmonary Critical Care will continue to follow along.
[2017-12-18] MEDS ORDERED: SUGAMMADEX SODIUM 500 MG/5 ML VIAL ONE (10:15)
--- NOTE | 2017-12-18 10:47 | OP ---
DATE OF PROCEDURE: 12/18/2017 PREOPERATIVE DIAGNOSES: Mediastinal adenopathy with compression of the right middle lobe bronchus. POSTOPERATIVE DIAGNOSES: Mediastinal adenopathy with compression of the right middle lobe bronchus. PROCEDURE: Cervical mediastinoscopy with biopsy of mediastinal mass. SURGEON: Ruy Agustin M.D. ANESTHESIA: General endotracheal. ESTIMATED BLOOD LOSS: Minimal. PROCEDURE IN DETAIL: After consent was obtained, the patient was brought to the operating room and p laced supine on the operating room table. After negative bronchoscopy, the neck was prepped and drap ed in usual sterile fashion. Skin incision was made two fingerbreadths above the sternal notch. The dissection down through the platysma was obtained with electrocautery. Strap muscles were split. A nterior tracheal fascia was bluntly dissected. The mediastinoscope was inserted and biopsies of medi astinal mass obtained. These were sent for lymph node protocol. The wound was ensured of hemostasis . Wound was then closed in layers and Dermabond applied to the skin. The patient tolerated the proc edure well, was awakened, extubated, and transferred to recovery room in stable condition.
--- NOTE | 2017-12-18 11:03 | OP ---
DATE OF PROCEDURE: 12/18/2017 SERVICE: Pulmonary Medicine PROCEDURE: Fiberoptic bronchoscopy with: 1. Visual airway inspection. PREPROCEDURE DIAGNOSES: 1. Pulmonary infiltrate in the right middle lobe. 2. Possible endobronchial disease. POSTOPERATIVE DIAGNOSES: 1. Pulmonary infiltrate in the right middle lobe. 2. Extrinsic compression of the right middle lobe bronchus. PROCEDURE TRANSPORT CONDUCTOR: Mynor Barclay M.D. MEDICATIONS USED: For list of medications, please refer to anesthesia documentation. PREANESTHESIA ASSESSMENT: H&P had been performed. The patient's medications and allergies were revi ewed. Informed consent was obtained after discussing the risks, benefits, and rationale for performi ng the procedure as well as alternative options. DESCRIPTION OF PROCEDURE: A timeout was performed identifying the correct procedure and patient with name and date of . A fiberoptic bronchoscope was introduced through the existing endotracheal tube. The tracheobronchial tree inspection was carried out with clear identification of the right up per lobe, right middle lobe, right lower lobe, left upper lobe, left lower lobe, and lingula. There was absolutely no endobronchial disease identified. Anatomy was normal to the segmental level. Ther e were no significant secretions. The bronchoscope was subsequently removed from the patient. FINDINGS: 1. No endobronchial disease was identified. 2. Secretions were minimal/nonexistent. SPECIMENS OBTAINED: None. COMPLICATIONS: None. ESTIMATED BLOOD LOSS: None. DISPOSITION: The patient will be converted over to a mediastinoscopy.
--- NOTE | 2017-12-18 11:20 | RAD ---
PORTABLE SUPINE CHEST: HISTORY: Dyspnea. Post intubation. COMPARISON: Chest film from 12/12/[address] from 12/07/2017. FINDINGS: There continues to be abnormal opacification in the medial right lung base, which corresponds to the area of atelectasis/infiltrate noted on recent CT. The right hilar mass lesion produces increased hi lar density. The appearance of the chest does not appear significantly changed from 12/12/2017. The ET tube is in place and appears in adequate position, with the tip above the mariann. POS: MIREYA
--- NOTE | 2017-12-18 14:52 | PQF ---
CLINICAL DOCUMENTATION IMPROVEMENT CLARIFICATION FORM: ICD-10 Updated PLEASE DO AN ADDENDUM TO THE PROGRESS NOTE WITH ANY DOCUMENTATION UPDATES OR ADDITIONS AND CARRY THROUGH TO DC SUMMARY. THANK YOU. DATE: 12/18/17 ATTN: Dr. Simpson Please exercise your independent, professional judgment in responding to the clarification form. Clinical indicators are provided on the bottom of this form for your review Please check appropriate box(s) to clarify if the following diagnosis has been ruled in or ruled out: SEPSIS . [ ] Ruled in diagnosis [x ] Continue to treat [ ] Resolved [ ] Ruled out diagnosis [ ] Cannot rule out diagnosis [ ] Other diagnosis [ ] Unable to determine In addition, please specify: Present on Admission (POA): [ ] Yes [ ] No [ ] Unable to determine For continuity of documentation, please document condition throughout progress notes and discharge summary. Thank You. CLINICAL INDICATORS - SIGNS / SYMPTOMS / LABS H&P: WHITE COUNT 3,300 SEPSIS: HER PRESENTATION IS CONSISTENT W/ SEPSIS, SUSPECTED SOURCE OF INFECTION IN THE LUNG. PNEUMONIA. PN 12/14-12/15: SEPSIS . ACUTE. RISKS: H&P: WHEN SHE PRESENTED TO THE ER, SHE HAD PULSE OF 107, RESP. RATE 21. PNEUMONIA TREATMENT: CPOE 12/13: ZOSYN 3.375 GM IV. DC'D 12/14/17 CPOE 12/17: ZOSYN 3.375 GM IV Thank you, Hilaria (This form is maintained as a part of the permanent medical record) 2015 [employer]. All Rights Reserved Hilaria Prado RN, BSN [email or web address] Office: [phone] [facility]
--- NOTE | 2017-12-18 15:14 | OP ---
DATE OF SERVICE: 12/18/2017 SERVICE: Pulmonary Medicine. PROCEDURE: Paracentesis, ultrasound guided. CONSENT: The risks and benefits of the procedure were explained to the patient. All questions were answered and alternative options explained. STAFF PHYSICIAN: Mynor Barclay M.D. MEDICATIONS USED: Lidocaine 1% without epinephrine, a total quantity 10 mL. PREOPERATIVE DIAGNOSES: 1. Ascites. 2. Mediastinal lymphadenopathy POSTPROCEDURE DIAGNOSES: 1. Ascites. 2. Mediastinal lymphadenopathy DESCRIPTION OF PROCEDURE: A timeout was performed by the procedure team and patient. The patient wa s positively identified using name and date of . The procedure site was marked. Vital sign mon itoring was accomplished by noninvasive hemodynamic monitoring and oximetry. In the supine position, the right lower quadrant of the abdomen was identified using ultrasound probe. A large pocket of fl uid was easily identified. A finder needle was inserted. The skin was prepped and draped in sterile fashion and anesthetized with 1% lidocaine. A finder needle was inserted in the pleural space with return of cloudy yellow fluid. A drainage catheter was then inserted in the same location and a tota l quantity of 1800 mL of the same cloudy fluid was withdrawn by syringe pump technique. The evacuati on of fluid was terminated because the fluid stopped coming. The catheter was withdrawn and a steril e dressing applied. ESTIMATED BLOOD LOSS: Less than 2 mL. COMPLICATIONS: None.
--- NOTE | 2017-12-18 15:32 | PDOC.PN ---
- Subjective Encounter Start Date: 12/18/17 Encounter Start Time: 15:30 Patient seen and examined today. Admitted for hilar mass/post obstructive PNA. No new complaints. No acute events overnight. - Objective MAR Reviewed: Yes Vital Signs & Weight: Vital Signs (12 hours) Temp Pulse Resp BP BP BP Pulse Ox 12/18/17 11:10 98.9 F 106 H 18 117/80 100 12/18/17 08:00 100.4 F H 107 H 20 99 12/18/17 07:14 100.4 F H 107 H 20 105/70 95 12/18/17 04:49 99.2 F 107 H 20 103/75 95 Weight Admit Weight 196 lb 3.382 oz Weight 196 lb 3.382 oz I&O: 12/17/17 12/18/17 12/19/17 06:59 06:59 06:59 Intake Total 610 672 Balance 610 672 Result Diagrams: 12/18/17 05:14 12/17/17 03:49 Phys Exam - Physical Examination Constitutional: NAD HEENT: moist MMs, sclera anicteric, oral pharynx no lesions Neck: no JVD, supple, full ROM Respiratory: no wheezing, no rales, no rhonchi, clear to auscultation bilateral Cardiovascular: RRR, no significant murmur, no rub Gastrointestinal: soft, non-tender, positive bowel sounds distended Musculoskeletal: no edema, pulses present Neurological: non-focal, moves all 4 limbs Psychiatric: normal affect, A&O x 3 Skin: no rash, normal turgor Dx/Plan (1) Post obstructive pneumonia Status: Acute Comment: Stable. Continue IV antibiotics. f/u repeat blood cultures. Negative till date. (2) Ascites Code(s): R18.8 - OTHER ASCITES Status: Acute Qualifiers: Ascites type: other type Qualified Code(s): R18.8 - Other ascites Comment: Stable Following paracentesis, Fluid sent for culture and cytology. f/ u cultures. Scheduled for repeat paracentesis today. (3) Mediastinal lymphadenopathy Code(s): R59.0 - LOCALIZED ENLARGED LYMPH NODES Status: Acute Comment: Stable. Being followed by pulmonary- bronchoscopy 12/18/17. Will f/u with pulmonary service. f/u AFB. - Plan cont current plan of care, continue antibiotics, out of bed/ambulate * . Review of Systems - Medications/Allergies Allergies/Adverse Reactions: Allergies Allergy/AdvReac Type Severity Reaction Status Date / Time No Known Drug Allergies Allergy Verified 12/13/17 05:03 Medications: Current Medications Acetaminophen (Tylenol) 650 mg PO Q4H PRN PRN Reason: Headache/Fever or Pain Last Admin: 12/17/17 20:35 Dose: 650 mg Hydrocodone Bitart/Acetaminophen ([place] 7.5/325) 1 tab PO Q4H PRN PRN Reason: Pain Last Admin: 12/18/17 05:43 Dose: 1 tab Bisacodyl (Dulcolax) 10 mg PO DAILYPRN PRN PRN Reason: Constipation Piperacillin Sod/Tazobactam (Sod 3.375 gm/ Sodium Chloride) 100 mls @ 200 mls/ hr IVPB 0400,1000,1600,2200 [facility] Last Admin: 12/18/17 09:51 Dose: Not Given Lactulose (Lactulose) 20 gm PO BID KEITH Last Admin: 12/18/17 07:44 Dose: Not Given Sodium Chloride (Flush - Normal Saline) 10 ml IVF Q12HR KEITH Last Admin: 12/18/17 07:44 Dose: 10 ml Sodium Chloride (Flush - Normal Saline) 10 ml IVF PRN PRN PRN Reason: Saline Flush Last Admin: 12/13/17 18:42 Dose: 10 ml Tramadol HCl (Ultram) 50 mg PO Q6H PRN PRN Reason: Moderate Pain (4-6)
[2017-12-18] MEDS ORDERED: Lidocaine 1% PF 5 ML VIAL ONE (16:22)
[2017-12-18] MEDS ORDERED: Ondansetron HCl/PF 4 MG/2 ML Vial ONE (16:22)
[2017-12-18] MEDS ORDERED: diphenhydrAMINE 50 MG/ML VIAL ONE (16:22)
[2017-12-18] MEDS ORDERED: Ketorolac Tromethamine 30 MG/ML VIAL ONE (16:22)
[2017-12-18] MEDS ORDERED: PROPOFOL 200 MG/20 ML VIAL ONE (16:22)
[2017-12-18] MEDS ORDERED: Dexamethasone 20 MG/5 ML VIAL ONE (16:22)
[2017-12-18] MEDS ORDERED: Chloraseptic Spray 180 ml Bottle PO PRN (21:13)
[2017-12-19] MEDS: Piperacillin/Tazobactam 3.375 GM in Sodium Chloride 0.9% 100 ML IVPB SCH ×4 (04:14→19:32)
[2017-12-19 05:12] LABS: #Lymphocytes 0.3 thou/uL (1.20-3.40); #Monocytes 0.6 thou/uL (0.11-0.59); #Neutrophils 4.2 thou/uL (1.40-6.50); %Basophils 0.1 % (0.0-1.0); %Eosinophils 0.1 % (0.0-10.0); %Lymphocytes 6.1 % (21.0-51.0); %Monocytes 11.3 % (0.0-10.0); %Neutrophils 82.4 % (42.0-75.0); Hemoglobin 9.4 g/dL (12.0-16.0); Mean Corpuscular HGB CONC 32.5 g/dL (32.0-36.0); Mean Corpuscular Hemoglobin 26.1 pg (27.0-31.0); Mean Corpuscular Volume 80.5 fl (81.0-99.0); Mean Platelet Volume 6.5 fL (7.4-10.4); Platelet Count 472 thou/uL (130-400); RBC Distribution Width 12.8 % (11.5-14.5)
[2017-12-19] MEDS: HYDROcodone/Acetaminophen 7.5/325 mg Tablet PO PRN (09:49)
--- NOTE | 2017-12-19 10:30 | PRG ---
DATE OF SERVICE: 12/19/2017 SERVICE: Pulmonary Medicine. INTERVAL HISTORY: The patient is doing fantastic from a respiratory standpoint. She denies any curr ent chest pain, nausea, vomiting, fevers or chills other than appropriate postop pain. We are awaiti ng the results of her biopsy. PHYSICAL EXAMINATION: VITAL SIGNS: Afebrile, pulse 100, blood pressure 122/79, respirations 18, saturation 94% on room air . GENERAL: The patient is awake, alert, no apparent distress. LUNGS: Excellent air entry with no prolonged expiratory phase, wheezing, rhonchi or crackles. HEART: Normal rate, regular. ABDOMEN: Soft, nontender, nondistended. Bowel sounds are positive. MUSCULOSKELETAL: No cyanosis or clubbing. No pitting in the bilateral lower extremities. NEUROLOGIC: Grossly nonfocal. LABORATORY DATA: WBC 5.0, hemoglobin 9.4 and platelets 472,000. Culture results are negative to suhail e. The T-SPOT from the outpatient setting was abnormal. ASSESSMENT: 1. Mediastinal lymphadenopathy. 2. Ascites. 3. Right middle lobe atelectasis secondary to extrinsic compression of the right bronchus intermediu s. 4. Left-sided pleural effusion, small. 5. Abnormal T-SPOT. 6. Liver cyst, small DISCUSSION AND PLAN: We are awaiting the pathology results on the mediastinal lymph node biopsy. We will give the patient laboratory holiday tomorrow morning. Pulmonary or Critical Care will continue to follow along.
[2017-12-19 11:09] VITALS: TEMP 98.3
--- NOTE | 2017-12-19 12:48 | PDOC.PN ---
- Subjective Encounter Start Date: 12/19/17 Encounter Start Time: 07:40 Pt seen for followup re: postobstructive pneumonia. Denies chest pain, shortness of breath, fevers or chills. No nausea or vomiting. - Objective MAR Reviewed: Yes Vital Signs & Weight: Vital Signs (12 hours) Temp Pulse Resp BP Pulse Ox 12/19/17 11:07 98.3 F 99 18 116/77 96 12/19/17 07:43 98.4 F 100 18 12/19/17 07:01 98.4 F 100 18 122/79 94 L 12/19/17 04:00 98.2 F 96 18 107/71 94 L Weight Admit Weight 196 lb 3.382 oz Weight 196 lb 3.382 oz I&O: 12/18/17 12/19/17 12/20/17 06:59 06:59 06:59 Intake Total 672 250 Balance 672 250 Result Diagrams: 12/19/17 04:16 12/17/17 03:49 Additional Labs: Labs reviewed by me Phys Exam - Physical Examination Constitutional: NAD HEENT: moist MMs, sclera anicteric, oral pharynx no lesions, 2+ tonsils Neck: no nodes, no JVD, supple, full ROM Respiratory: no wheezing, no rales, no rhonchi, clear to auscultation bilateral Cardiovascular: RRR, no rub S1, S2 Gastrointestinal: soft, non-tender, positive bowel sounds distention Neurological: moves all 4 limbs Psychiatric: normal affect Dx/Plan (1) Post obstructive pneumonia Status: Acute Comment: Continue IV antibiotics as below (2) Ascites Code(s): R18.8 - OTHER ASCITES Status: Acute Qualifiers: Ascites type: other type Qualified Code(s): R18.8 - Other ascites Comment: s/p paracentesis x2. Followup culture and cytology (3) Mediastinal lymphadenopathy Code(s): R59.0 - LOCALIZED ENLARGED LYMPH NODES Status: Acute Comment: s/p lymph node biopsy, follow path report (4) Hyponatremia Code(s): E87.1 - HYPO-OSMOLALITY AND HYPONATREMIA Status: Acute Comment: mild, likely asymptomatic - Plan * . Review of Systems - Review of Systems Constitutional: negative: fever, chills, sweats, weakness, malaise Respiratory: negative: Cough, Shortness of Breath, SOB with Excertion, Pleuritic Pain, Wheezing Cardiovascular: negative: chest pain, palpitations, orthopnea, paroxysmal nocturnal dyspnea, edema, light headedness Gastrointestinal: negative: Nausea, Vomiting, Abdominal Pain, Diarrhea, Constipation, Melena, Hematochezia Genitourinary: negative: Dysuria, Frequency, Incontinence, Hematuria, Retention Skin: negative: Rash, Lesions, Juan Miguel, Bruising - Medications/Allergies Allergies/Adverse Reactions: Allergies Allergy/AdvReac Type Severity Reaction Status Date / Time No Known Drug Allergies Allergy Verified 12/13/17 05:03 Medications: Current Medications Acetaminophen (Tylenol) 650 mg PO Q4H PRN PRN Reason: Headache/Fever or Pain Last Admin: 12/17/17 20:35 Dose: 650 mg Hydrocodone Bitart/Acetaminophen ([place] 7.5/325) 1 tab PO Q4H PRN PRN Reason: Pain Last Admin: 12/19/17 09:49 Dose: 1 tab Bisacodyl (Dulcolax) 10 mg PO DAILYPRN PRN PRN Reason: Constipation Piperacillin Sod/Tazobactam (Sod 3.375 gm/ Sodium Chloride) 100 mls @ 200 mls/ hr IVPB 0400,1000,1600,2200 [facility] Last Admin: 12/19/17 09:10 Dose: Not Given Lactulose (Lactulose) 20 gm PO BID [facility] Last Admin: 12/19/17 07:51 Dose: Not Given Phenol (Chloraseptic [place] 180 Ml Bot) 0 ml PO Q4H PRN PRN Reason: SORE THROAT Last Admin: 12/18/17 21:28 Dose: 2 spr Sodium Chloride (Flush - Normal Saline) 10 ml IVF Q12HR KEITH Last Admin: 12/19/17 07:51 Dose: 10 ml Sodium Chloride (Flush - Normal Saline) 10 ml IVF PRN PRN PRN Reason: Saline Flush Last Admin: 12/13/17 18:42 Dose: 10 ml Tramadol HCl (Ultram) 50 mg PO Q6H PRN PRN Reason: Moderate Pain (4-6)
[2017-12-19 16:17] VITALS: BP 115/76
--- NOTE | 2017-12-21 02:17 | DIS ---
DATE OF ADMISSION: 12/13/2017 DATE OF DISCHARGE: 12/21/2017 PRIMARY CARE PHYSICIAN: Dr. Spring Yuen. Patient left against medical advice on 12/19/2017. DISCHARGE DIAGNOSES: 1. Postobstructive pneumonia. 2. Ascites. 3. Mediastinal lymphadenopathy. CONSULTATIONS DURING THIS HOSPITALIZATION: Pulmonary and Critical Care Medicine, Dr. Mynor Barclay; oncology, Jennifer Martins; cardiovascular surgery, Dr. Ruy Agustin. HOSPITAL COURSE: Ms. Gaston is a pleasant 27-year-old lady who was admitted to [facility] on 12/13/2017 for sepsis, pneumonia, lung mass, and hematologic abnormalities. Please r efer to my history and physical note from 12/13/2017 for further information. She was seen by Pulmonology Service. On 12/13/2017, she underwent paracentesis, both diagnostic and therapeutic. Pathology report showed many mature [id number] size lymphocytes and histiocy deepti, negative for granuloma, negative for acid fast bacilli and fungi, and negative for overt maligna ncy. She was seen by Cardiovascular Surgery and underwent cervical mediastinoscopy with biopsy of me diastinal mass on 12/18/2017. She also underwent repeat paracentesis on 12/18/2017. On 12/19/2017, she left the hospital against medical advice. She received intravenous antibiotics du ring this hospitalization for postobstructive pneumonia. After she left the hospital, biopsy report of the lymph node was available. It showed soft tissue fr agments with numerous necrotizing granulomas negative for acid fast bacilli and fungal forms on speci al stains and negative for malignancy. Many thanks for allowing me to participate in your patient's care. Please feel free to contact me wi th any questions or concerns.
[2017-12-21 15:58] LABS: Ref Lab Test Ordered MTC PCR
== END 2017-12-19 19:52 | disposition left against medical advice (07) | DRG 871 ==
LOC: ERS 02:05 → T4-A 05:06
PROVIDERS: ADMIT Internal Medicine; ATTEND Internal Medicine
PROC: 0W9G3ZZ Drainage of Peritoneal Cavity, Percutaneous Approach (ICD-10-PCS; 2017-12-13)
PROC: 0WBC4ZX Excision of Mediastinum, Percutaneous Endoscopic Approach, Diagnostic (ICD-10-PCS; principal; 2017-12-18)
PROC: 0W9G3ZZ Drainage of Peritoneal Cavity, Percutaneous Approach (ICD-10-PCS; 2017-12-18)
DX: A41.9 Sepsis, unspecified organism (principal); J18.9 Pneumonia, unspecified organism; J98.59 Other diseases of mediastinum, not elsewhere classified; R18.8 Other ascites; J90 Pleural effusion, not elsewhere classified; E87.1 Hypo-osmolality and hyponatremia; J98.11 Atelectasis; R59.0 Localized enlarged lymph nodes; K59.00 Constipation, unspecified; K76.89 Other specified diseases of liver; J98.09 Other diseases of bronchus, not elsewhere classified
CPT/HCPCS: 32554; 36415; 71045; 80048; 82042; 82378; 82945; 83615; 84155; 84157; 84550; 85007; 85025; 85027; 85060; 86480; 87040; 87070; 87116; 87205; 87206; 87389; 87449; 88112; 88184; 88305; 88307; 88312; 89051; 96361; 96374; A4216; J0131; J1100; J1200; J1650; J1885; J2001; J2250; J2270; J2405; J2543; J2704; J3010; J7050

== ENCOUNTER 2017-12-27 18:32 | Emergency (ER) | payer OTHER ==
[~2017-12-27 18:32] MED LIST: ISOVUE-370 76%-LOCM 1 ML ONE
[2017-12-27 19:00] LABS: Bilirubin Moderate (Negative); Blood, Urine Small (Negative); Clarity TURBID (Clear); Glucose, Urine (Dipstick) Negative (Negative); Leukocyte Small (Negative); Nitrite Negative (Negative); Protein, Urine (Dipstick) 100 mg/dL (Neg-Trace); Specific Gravity, Urine 1.034 (1.002-1.036)
[2017-12-27 19:02] LABS: Bacteria/HPF None Seen HPF (None Seen)
[2017-12-27 19:05] LABS: Yeast-AUWi Flag 45.6 (0-25.0)
[2017-12-27 19:15] LABS: Hyaline Casts/LPF 0-3 HYALINE CAST LPF (0-3 Hyaline); Other Casts/LPF None Seen LPF (0-3 Hyaline); RBC/HPF 0-3 HPF (0-3); Yeast-All Forms 1+ HPF (None Seen)
[2017-12-27 19:20] LABS: #Lymphocytes 0.5 thou/uL (1.20-3.40); #Monocytes 0.4 thou/uL (0.11-0.59); #Neutrophils 5.1 thou/uL (1.40-6.50); %Basophils 0.3 % (0.0-1.0); %Eosinophils 0.3 % (0.0-10.0); %Lymphocytes 7.8 % (21.0-51.0); %Monocytes 6.9 % (0.0-10.0); %Neutrophils 84.8 % (42.0-75.0); Hemoglobin 9.9 g/dL (12.0-16.0); Mean Corpuscular Hemoglobin 26.2 pg (27.0-31.0); Mean Platelet Volume 7.5 fL (7.4-10.4); Platelet Count 570 thou/uL (130-400); RBC Distribution Width 13.9 % (11.5-14.5); Red Blood Cell (RBC) Count 3.79 mill/uL (4.20-5.40); White Blood Cell (WBC) Count 6.1 thou/uL (4.8-10.8)
[2017-12-27 19:32] LABS: BHCG - Serum Negative (NEGATIVE); Pregs Control Background? CLEAR/WHITE (CLR/WHITE); Pregs Control Bar Appear? YES (CONTROL BAR)
[2017-12-27 19:43] LABS: ALT (SGPT) 18 U/L (8-55); AST (SGOT) 32 U/L (5-34); Albumin 3.5 g/dL (3.5-5.0); Alkaline Phosphatase 52 U/L (40-150); Anion Gap 20 mmol/L (10-20); BUN (Urea Nitrogen) 11 mg/dL (7.0-18.7); Bilirubin, Total 1.2 mg/dL (0.2-1.2); CK (CPK) 70 U/L (29-168); Calc. Creatinine Clearance 0 mL/min (70-130); Calcium 9.5 mg/dL (7.8-10.44); Carbon Dioxide 23 mmol/L (22-29); Chloride 99 mmol/L (98-107); Estimated GFR-MDRD Greater than 90; Globulin 4.7 g/dL (2.4-3.5); Glucose 90 mg/dL (70-105); Lipase 113 U/L (8-78); Potassium 3.7 mmol/L (3.5-5.1); Protein, Total 8.2 g/dL (6.0-8.3); Sodium 138 mmol/L (136-145)
--- NOTE | 2017-12-27 20:19 | CT ---
CT ABDOMEN AND PELVIS WITH CONTRAST 12/27/17 Multiple axial tomograms obtained through the abdomen and pelvis with IV enhancement. INDICATIONS: Abdominal pain and abdominal distention. Recently diagnosed with ascites and right hilar mass. Comparison made to abdominal and pelvic CT of 12/12/[address] of 12/07/17. FINDINGS: The right hilar mass is again seen but is only partially imaged on today's study. This is better deli neated on the CT chest of 12/07/17. There are moderate bilateral effusions. Both of the effusions have increased in size when compared to the prior study. Diffuse ascites again noted. There is moderate ascites in all quadrants. The liver, spleen, pancreas, adrenal glands, and kidneys are unremarkable. Bowel loops appear unremar kable. Pelvic structures are unremarkable. Osseous structures unremarkable. IMPRESSION: 1. Right hilar mass is again seen but is better delineated on CT chest of 12/07/17. 2. Bilateral pleural effusions have increased in size when compared to the prior study. 3. Moderate four quadrant ascites similar to the exam of 12/12/17. POS: [facility]
== END 2017-12-27 21:57 | disposition home or self-care (01) ==
LOC: ERS 18:32
DX: R18.8 Other ascites (principal)
CPT/HCPCS: 74177; 80053; 81003; 81015; 82550; 83690; 84703; 85025

== ENCOUNTER 2018-01-11 18:46 | Inpatient (IN) | payer OTHER ==
[2018-01-11 21:10] LABS: #Eosinphils 0.1 thou/uL (0.0-0.7); #Lymphocytes 0.5 thou/uL (1.20-3.40); #Monocytes 0.4 thou/uL (0.11-0.59); #Neutrophils 2.8 thou/uL (1.40-6.50); %Basophils 0.1 % (0.0-1.0); %Eosinophils 1.9 % (0.0-10.0); %Lymphocytes 13.3 % (21.0-51.0); %Monocytes 10.5 % (0.0-10.0); %Neutrophils 74.2 % (42.0-75.0); Hemoglobin 11.7 g/dL (12.0-16.0); Mean Corpuscular HGB CONC 31.9 g/dL (32.0-36.0); Mean Corpuscular Hemoglobin 27.1 pg (27.0-31.0); Mean Corpuscular Volume 85.1 fL (78.0-98.0); Mean Platelet Volume 7.8 fL (7.4-10.4); Platelet Count 226 thou/uL (130-400); RBC Distribution Width 18.2 % (11.5-14.5); Red Blood Cell (RBC) Count 4.31 mill/uL (4.20-5.40); White Blood Cell (WBC) Count 3.8 thou/uL (4.8-10.8)
[2018-01-11 21:32] LABS: ALT (SGPT) 18 U/L (8-55); AST (SGOT) 16 U/L (5-34); Albumin 3.3 g/dL (3.5-5.0); Alkaline Phosphatase 58 U/L (40-150); Anion Gap 12 mmol/L (10-20); BUN (Urea Nitrogen) 17 mg/dL (7.0-18.7); Bilirubin, Total 0.8 mg/dL (0.2-1.2); Calc. Creatinine Clearance 0 mL/min (70-130); Calcium 8.8 mg/dL (7.8-10.44); Carbon Dioxide 26 mmol/L (22-29); Chloride 97 mmol/L (98-107); Estimated GFR-MDRD Greater than 90; Globulin 3.8 g/dL (2.4-3.5); Glucose 95 mg/dL (70-105); Potassium 3.2 mmol/L (3.5-5.1); Protein, Total 7.1 g/dL (6.0-8.3); Sodium 132 mmol/L (136-145)
[2018-01-12 02:22] VITALS: BMI 26.4
[2018-01-12] MEDS ORDERED: Rifampin 300 MG CAP PO SCH ×3 (03:00→09:00)
[2018-01-12] MEDS ORDERED: Ethambutol HCl 400 MG TAB PO SCH ×3 (03:00→09:00)
[2018-01-12] MEDS ORDERED: Pyrazinamide 500 MG TAB PO SCH ×3 (03:00→09:00)
[2018-01-12] MEDS ORDERED: Isoniazid 100 MG TAB PO SCH ×2 (03:15→09:00)
[2018-01-12] MEDS: Acetaminophen 325 MG TAB PO PRN ×3 (09:36→20:50)
[2018-01-12] MEDS ORDERED: HYDROcodone/Acetaminophen 5/325 mg Tablet PO PRN ×2 (09:43)
[2018-01-12] MEDS ORDERED: Ondansetron HCl/PF 4 MG/2 ML Vial IVP PRN (09:43)
[2018-01-12] MEDS ORDERED: Ondansetron ODT 4 MG TAB PO PRN (09:43)
[2018-01-12] MEDS ORDERED: Zolpidem Tartrate 5 MG TAB PO PRN (09:43)
[2018-01-12] MEDS ORDERED: Guaifenesin DM 100-10/5 ML UDCUP PO PRN (09:43)
[2018-01-12] MEDS: Famotidine 20 MG TAB PO SCH (20:50)
[2018-01-12] MEDS: Ethambutol HCl 400 MG TAB PO SCH (20:50)
[2018-01-13] MEDS: Acetaminophen 325 MG TAB PO PRN ×5 (00:29→22:40)
[2018-01-13 05:38] LABS: #Lymphocytes 0.4 thou/uL (1.20-3.40); #Monocytes 0.4 thou/uL (0.11-0.59); %Basophils 0.4 % (0.0-1.0); %Eosinophils 0.7 % (0.0-10.0); %Lymphocytes 10.3 % (21.0-51.0); %Monocytes 9.5 % (0.0-10.0); %Neutrophils 79.2 % (42.0-75.0); Hemoglobin 10.8 g/dL (12.0-16.0); Mean Corpuscular HGB CONC 31.8 g/dL (32.0-36.0); Mean Corpuscular Hemoglobin 26.7 pg (27.0-31.0); Mean Corpuscular Volume 84.1 fL (78.0-98.0); Mean Platelet Volume 8.1 fL (7.4-10.4); Platelet Count 182 thou/uL (130-400); RBC Distribution Width 17.8 % (11.5-14.5); Red Blood Cell (RBC) Count 4.03 mill/uL (4.20-5.40); White Blood Cell (WBC) Count 3.7 thou/uL (4.8-10.8)
[2018-01-13 05:50] LABS: ALT (SGPT) 16 U/L (8-55); AST (SGOT) 17 U/L (5-34); Albumin 2.9 g/dL (3.5-5.0); Alkaline Phosphatase 53 U/L (40-150); Anion Gap 10 mmol/L (10-20); BUN (Urea Nitrogen) 8 mg/dL (7.0-18.7); Bilirubin, Total 1.7 mg/dL (0.2-1.2); Calc. Creatinine Clearance 137 mL/min (70-130); Calcium 8.4 mg/dL (7.8-10.44); Carbon Dioxide 27 mmol/L (22-29); Chloride 101 mmol/L (98-107); Estimated GFR-MDRD Greater than 90; Globulin 3.5 g/dL (2.4-3.5); Glucose 92 mg/dL (70-105); Potassium 4.3 mmol/L (3.5-5.1); Protein, Total 6.4 g/dL (6.0-8.3); Sodium 134 mmol/L (136-145)
[2018-01-13] MEDS: Famotidine 20 MG TAB PO SCH ×2 (08:04→19:55)
[2018-01-13] MEDS: Isoniazid 100 MG TAB PO SCH (08:06)
[2018-01-13] MEDS: Pyrazinamide 500 MG TAB PO SCH (08:06)
[2018-01-13] MEDS: Rifampin 300 MG CAP PO SCH (08:07)
[2018-01-13] MEDS: Ethambutol HCl 400 MG TAB PO SCH ×2 (10:26→19:55)
--- NOTE | 2018-01-13 11:15 | PDOC.PN ---
- Subjective Encounter Start Date: 01/13/18 Encounter Start Time: 11:13 Patient is reporting no symptoms. Denies cough or sputum production. Denies any GI or abdominal symptoms. - Objective Resuscitation Status: Resuscitation Status FULL:Full Resuscitation MAR Reviewed: Yes Vital Signs & Weight: Vital Signs (12 hours) Temp Pulse Resp BP Pulse Ox 01/13/18 08:11 102.7 F H 122 H 18 93 L 01/13/18 05:44 99 F 01/13/18 03:39 99.2 F 104 H 18 111/76 94 L 01/13/18 00:12 102.5 F H 117 H 18 103/71 95 01/13/18 00:00 102.5 F H 117 H 18 103/71 95 Weight Weight 174 lb 1.6 oz I&O: 01/12/18 01/13/18 01/14/18 06:59 06:59 06:59 Intake Total 500 970 Balance 500 970 Result Diagrams: 01/13/18 05:06 01/13/18 05:06 Phys Exam - Physical Examination Constitutional: NAD HEENT: oral pharynx no lesions Neck: no JVD, supple Mild rales on right. 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 Patient was previous diagnosed with pneumonia with recurrence. CT with NIKKI and differential was neoplasm, tb or sarcoid. She had thoracentesis and paracentesis for ascites. She was have some modest abdominal pain. It looks like she left AMA and has been fairly asymptomatic except that she had an ED visit for abdominal pain. Sunday, the patient received a call from Dr. Peralta indicating that she needed to come to the ED. She did and she was admitted. Looking through her records, there is a positive AFB on the ascites culture. It has been sent to the state lab. She has been started on four drug therapy. She denies any symptoms other than the fever. She has no cough or sputum production and denies any GI or abdominal symptoms now. Still spiking significant fever. Will continue the four drug therapy and await further direction from ID. Do not think she needs induced sputums as she is not coughing at all and the diagnosis is confirmed. - Plan * above
--- NOTE | 2018-01-13 20:08 | PDOC.EVN ---
Event Note - Event Note Event Note: Called by RN for temp 102.8, pulse 138 now and last tylenol at 17:33. will order a one time dose of ibuprofen - do not see a contraindication for this - however there is no H&P on the chart. continue prn tylenol, try to cool the patient as well. Pt is on 4 drug therapy for TB. Do not see a consult for Dr. Peralta - will add htis as well.
[2018-01-13] MEDS ORDERED: Ibuprofen 200 MG TAB PO SCH (20:15)
[2018-01-14] MEDS: Acetaminophen 325 MG TAB PO PRN ×3 (04:50→20:17)
[2018-01-14] MEDS: Ethambutol HCl 400 MG TAB PO SCH ×2 (09:51→20:17)
[2018-01-14] MEDS: Isoniazid 100 MG TAB PO SCH (09:52)
[2018-01-14] MEDS: Rifampin 300 MG CAP PO SCH (09:54)
[2018-01-14] MEDS: Famotidine 20 MG TAB PO SCH ×2 (09:54→20:17)
[2018-01-14] MEDS: Pyrazinamide 500 MG TAB PO SCH (09:54)
[2018-01-14] MEDS: Ibuprofen 200 MG TAB PO PRN (13:02)
[2018-01-15] MEDS: Ibuprofen 200 MG TAB PO PRN ×2 (00:34→10:42)
--- NOTE | 2018-01-15 01:50 | CON ---
DATE OF CONSULTATION: 01/14/2018 REASON FOR CONSULTATION: Tuberculosis. HISTORY OF PRESENT ILLNESS: A 28-year-old had no past medical history until her last admission at the end of 11/2017, when she presented with new onset of abdominal pain and sensation of fullness. In 09/2017, she had an episode of pneumonia that was treated with outpatient antimicrobial therapy. On 11/28/2017 , she had chest x-ray which showed a right middle-lobe confluent infiltrate and then CT of chest demonstrated a large hilar mass with postobstructive atelectasis, mediastinal adenopathy, then she developed abdominal pain and was admitted. She had an abdomen and pelvis CT scan, which demonstrated moderate amount of ascites. No focal liver abnormality and 1 cm hypodensity right kidney. Patient unfortunately left against medical advice on 12/19/2017. Before discharge, she did have a paracentesis and lymph node biopsy, which showed necrotizing granulomas with negative stains for acid fast. After she was discharged, I was contacted a few days ago by the laboratories because of newly identified positive AFB culture from the ascitic fluid. I was able to contact patient at work and directed her to come to the emergency room to be readmitted. She is having fever intermittently. Denies headaches, no visual symptoms, sore throat, odynophagia, dysphagia, no vomiting, no chest pain, no abdominal pain, no joint symptoms. No neurological symptoms. PAST MEDICAL HISTORY: Before this past few admissions, she has not had any past medical history. PAST SURGICAL HISTORY: No past surgical history either, never had from child. SOCIAL HISTORY: Works for [employer], never smoker. No history of recreational drug use. Lives in [place] with family. No family history of significance. ALLERGIES: None. MEDICATIONS: Currently, she has been started on 4-drug regimen plus vitamin B6 plus p.r.n. medications. PHYSICAL EXAMINATION: VITAL SIGNS: T-max of 102.9 and BP 107/73, pulse 108, respirations 20, O2 saturation 94%. SKIN: Without any changes. Patient has a peripheral IV access. No lymphadenopathy. HEENT: Ocular movements conjugate. Oral cavity normal. NECK: Supple. LUNGS: Clear to auscultation and percussion. HEART: S1, S2, regular rate. ABDOMEN: Soft, not distended or tender. No ascites. No bladder distention. EXTREMITIES: No joint inflammatory activity. Moves all extremities equally. LABORATORY DATA AND X-RAY FINDINGS: White cell count 3.8, hemoglobin 11.7, platelets 226 with 74% neutrophils, 13% lymphocytes. Sodium 132, creatinine 0.83, albumin 3.3. Liver profile normal, bilirubin went up to 1.7. HIV serology negative from 12/12/2017. ASSESSMENT: Right middle lobe infiltrate, mediastinal lymphadenopathy with necrotizing granulomas, and ascites with retroperitoneal lymphadenopathy. TYLER positive, AFB culture from the ascitic fluid. 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 She may have pulmonary tuberculosis in addition to the lymph node involvement though since the mediastinal LN may have discharged caseous material in the R lung. She has evidence of peritonitis as well as peritoneal dissemination by probably rupture ofy the lymph node into the peritoneal cavity. The patient will need to remain in airborne precautions, sputum for AFB cultures and sensitivities. We will contact Aretha from [facility] tomorrow, continue 4-drug regimen and vit B6. Discharge planning as soon as we have the [facility] activated to do the screening of contacts and to provide the directly observed therapy.She will likely continue with fever for a while. ORALIA
[2018-01-15] MEDS: Acetaminophen 325 MG TAB PO PRN ×3 (08:10→16:40)
--- NOTE | 2018-01-15 10:02 | PDOC.PN ---
- Subjective Encounter Start Date: 01/14/18 Encounter Start Time: 12:00 Manuel is seen today, Alert and oriented. She Has persistant low grade Fevere with Chills, She is in no distress from peritonitis from TB. - Objective Resuscitation Status: Resuscitation Status FULL:Full Resuscitation MAR Reviewed: Yes Vital Signs & Weight: Vital Signs (12 hours) Temp Pulse Resp BP Pulse Ox 01/15/18 07:50 102.9 F H 133 H 20 100/67 91 L 01/15/18 04:47 102.7 F H 134 H 20 103/72 93 L 01/15/18 00:00 102.4 F H 124 H Weight Weight 174 lb 1.6 oz I&O: 01/14/18 01/15/18 01/16/18 06:59 06:59 06:59 Intake Total 3000 2070 Balance 3000 2070 Result Diagrams: 01/13/18 05:06 01/13/18 05:06 Radiology Reviewed by me: Yes Phys Exam - Physical Examination HEENT: PERRLA, moist MMs Neck: no nodes, no JVD Respiratory: no wheezing, no rales Cardiovascular: RRR, no significant murmur Gastrointestinal: soft, non-tender, no distention, positive bowel sounds Musculoskeletal: no edema, pulses present Neurological: non-focal, normal sensation Lymphatic: no nodes Psychiatric: normal affect, A&O x 3 Skin: no rash, normal turgor Dx/Plan (1) Tuberculosis, 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 Waiting on ID to see. 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 (2) Abdominal pain Code(s): R10.9 - UNSPECIFIED ABDOMINAL PAIN Status: Acute Qualifiers: Abdominal location: left lower quadrant Qualified Code(s): R10.32 - Left lower quadrant pain Comment: Improved now. (3) Ascites Code(s): R18.8 - OTHER ASCITES Status: Acute Qualifiers: Ascites type: other type Qualified Code(s): R18.8 - Other ascites Comment: s/p paracentesis x2. Followup culture Posiitve for TB (4) Hyponatremia Code(s): E87.1 - HYPO-OSMOLALITY AND HYPONATREMIA Status: Acute Comment: mild, likely asymptomatic (5) Mediastinal lymphadenopathy Code(s): R59.0 - LOCALIZED ENLARGED LYMPH NODES Status: Acute Comment: s/p lymph node biopsy, follow path report (6) Constipation Code(s): K59.00 - CONSTIPATION, UNSPECIFIED Status: Resolved Qualifiers: Constipation type: slow transit constipation Qualified Code(s): K59.01 - Slow transit constipation Comment: Continue to Monitor, Likely from peritonits. 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 Review of Systems - Review of Systems Constitutional: fever, sweats, weakness Eyes: negative: Pain, Vision Change, Conjunctivae Inflammation, Eyelid Inflammation, Redness, Other ENT: negative: Ear Pain, Ear Discharge, Nose Pain, Nose Discharge, Nose Congestion, Mouth Pain, Mouth Swelling, Throat Pain, Throat Swelling, Other Respiratory: negative: Cough, Dry, Shortness of Breath, Hemoptysis, SOB with Excertion, Pleuritic Pain, Sputum, Wheezing Cardiovascular: negative: chest pain, palpitations, orthopnea, paroxysmal nocturnal dyspnea, edema, light headedness, other Gastrointestinal: Nausea, Abdominal Pain, Constipation Musculoskeletal: negative: Neck Pain, Shoulder Pain, Arm Pain, Back Pain, Hand Pain, Leg Pain, Foot Pain, Other Skin: negative: Rash, Lesions, Juan Miguel, Bruising, Other Neurological: negative: Weakness, Numbness, Incoordination, Change in Speech, Confusion, Seizures, Other - Medications/Allergies Allergies/Adverse Reactions: Allergies Allergy/AdvReac Type Severity Reaction Status Date / Time No Known Drug Allergies Allergy Verified 01/12/18 02:18 Medications: Current Medications Acetaminophen (Tylenol) 650 mg PO Q4H PRN PRN Reason: Headache/Fever or Pain Last Admin: 01/15/18 08:10 Dose: 650 mg Hydrocodone Bitart/Acetaminophen ([place] 5/325) 1 tab PO Q4H PRN PRN Reason: Moderate Pain (4-6) Hydrocodone Bitart/Acetaminophen ([place] 5/325) 2 tab PO Q4H PRN PRN Reason: Severe Pain (7-10) Ethambutol HCl (Myambutol) 400 mg PO BID [facility] Last Admin: 01/14/18 20:17 Dose: 400 mg Famotidine (Pepcid) 20 mg PO BID [facility] Last Admin: 01/14/18 20:17 Dose: 20 mg Folic Acid (Folvite) 1 mg PO DAILY [facility] Guaifenesin/Dextromethorphan (Robitussin Dm) 15 ml PO Q4H PRN PRN Reason: Cough Sodium Chloride (Normal Saline 0.9%) 1,000 mls @ 999 mls/hr IV .Q1H1M [facility] Stop: 01/15/18 12:00 Sodium Chloride (Normal Saline 0.9%) 1,000 mls @ 100 mls/hr IV .Q10H [facility] Ibuprofen (Motrin) 400 mg PO Q6H PRN PRN Reason: Fever Last Admin: 01/15/18 00:34 Dose: 400 mg Isoniazid (Isoniazid) 300 mg PO DAILY [facility] Last Admin: 01/14/18 09:52 Dose: 300 mg Ondansetron HCl (Zofran Odt) 4 mg PO Q6H PRN PRN Reason: Nausea/Vomiting Ondansetron HCl (Zofran) 4 mg IVP Q6H PRN PRN Reason: Nausea/Vomiting Pyrazinamide (Pyrazinamide) 1,500 mg PO DAILY [facility] Last Admin: 01/14/18 09:54 Dose: 1,500 mg Rifampin (Rifadin) 600 mg PO DAILY [facility] Last Admin: 01/14/18 09:54 Dose: 600 mg Sodium Chloride (Flush - Normal Saline) 10 ml IVF Q12HR [facility] Last Admin: 01/14/18 20:17 Dose: 10 ml Sodium Chloride (Flush - Normal Saline) 10 ml IVF PRN PRN PRN Reason: Saline Flush Zolpidem Tartrate (Ambien) 5 mg PO HSPRN PRN PRN Reason: Insomnia
[2018-01-15] MEDS: Rifampin 300 MG CAP PO SCH (10:41)
[2018-01-15] MEDS: Folic Acid 1 MG TAB PO SCH (10:42)
[2018-01-15] MEDS: Famotidine 20 MG TAB PO SCH ×2 (10:42→20:07)
[2018-01-15] MEDS: Pyrazinamide 500 MG TAB PO SCH (10:42)
[2018-01-15] MEDS: Ethambutol HCl 400 MG TAB PO SCH (10:42)
[2018-01-15] MEDS: Isoniazid 100 MG TAB PO SCH (10:42)
[2018-01-15] MEDS: Sodium Chloride 0.9% 1,000 ML IV SCH ×5 (10:43→20:08)
--- NOTE | 2018-01-15 17:21 | PDOC.PN ---
- Subjective Encounter Start Date: 01/15/18 Encounter Start Time: 14:00 Patient is seeen today, alert and oriented. Persistent Abdominal pain. - Objective Resuscitation Status: Resuscitation Status FULL:Full Resuscitation MAR Reviewed: Yes Vital Signs & Weight: Vital Signs (12 hours) Temp Pulse Resp BP BP Pulse Ox 01/15/18 16:35 102.9 F H 142 H 20 110/75 95 01/15/18 12:01 102.3 F H 123 H 20 100/63 91 L 01/15/18 11:00 102.2 F H 123 H 20 96/66 93 L 01/15/18 10:45 101.2 F H 01/15/18 10:25 102.9 F H 133 H 01/15/18 08:10 140 H 93 L 01/15/18 08:00 102.9 F H 133 H 20 91 L 01/15/18 07:50 102.9 F H 133 H 20 100/67 91 L Weight Weight 174 lb 1.6 oz I&O: 01/14/18 01/15/18 01/16/18 06:59 06:59 06:59 Intake Total 3000 2070 120 Balance 3000 2070 120 Result Diagrams: 01/13/18 05:06 01/13/18 05:06 Radiology Reviewed by me: Yes Phys Exam - Physical Examination HEENT: PERRLA, moist MMs Neck: no nodes, no JVD Respiratory: no wheezing, no rales Cardiovascular: RRR, no significant murmur Gastrointestinal: soft, non-tender Musculoskeletal: no edema, pulses present Lymphatic: no nodes Dx/Plan (1) Tuberculosis, 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 Waiting on ID to see. 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 (2) Abdominal pain Code(s): R10.9 - UNSPECIFIED ABDOMINAL PAIN Status: Acute Qualifiers: Abdominal location: left lower quadrant Qualified Code(s): R10.32 - Left lower quadrant pain Comment: Improved now. (3) Ascites Code(s): R18.8 - OTHER ASCITES Status: Acute Qualifiers: Ascites type: other type Qualified Code(s): R18.8 - Other ascites Comment: s/p paracentesis x2. Followup culture Posiitve for TB (4) Hyponatremia Code(s): E87.1 - HYPO-OSMOLALITY AND HYPONATREMIA Status: Acute Comment: mild, likely asymptomatic (5) Mediastinal lymphadenopathy Code(s): R59.0 - LOCALIZED ENLARGED LYMPH NODES Status: Acute Comment: s/p lymph node biopsy, follow path report (6) Constipation Code(s): K59.00 - CONSTIPATION, UNSPECIFIED Status: Resolved Qualifiers: Constipation type: slow transit constipation Qualified Code(s): K59.01 - Slow transit constipation Comment: Continue to Monitor, Likely from peritonits. (7) Tachycardia with heart rate 121-140 beats per minute Code(s): R00.0 - TACHYCARDIA, UNSPECIFIED Status: Acute Comment: Will start on IV fluids, Likely Dehydration contributing to tachycardia. - Plan cont current plan of care, PT/OT, social contact worker, respiratory therapy, incentive spirometry Waiting on Health department to setup Direct observation therapy with ID. Review of Systems - Review of Systems Constitutional: fever, weakness Eyes: negative: Pain, Vision Change, Conjunctivae Inflammation, Eyelid Inflammation, Redness, Other ENT: negative: Ear Pain, Ear Discharge, Nose Pain, Nose Discharge, Nose Congestion, Mouth Pain, Mouth Swelling, Throat Pain, Throat Swelling, Other Respiratory: negative: Cough, Dry, Shortness of Breath, Hemoptysis, SOB with Excertion, Pleuritic Pain, Sputum, Wheezing Cardiovascular: negative: chest pain, palpitations, orthopnea, paroxysmal nocturnal dyspnea, edema, light headedness, other Gastrointestinal: negative: Nausea, Vomiting, Abdominal Pain, Diarrhea, Constipation, Melena, Hematochezia, Other Musculoskeletal: negative: Neck Pain, Shoulder Pain, Arm Pain, Back Pain, Hand Pain, Leg Pain, Foot Pain, Other - Medications/Allergies Allergies/Adverse Reactions: Allergies Allergy/AdvReac Type Severity Reaction Status Date / Time No Known Drug Allergies Allergy Verified 01/12/18 02:18 Medications: Current Medications Acetaminophen (Tylenol) 650 mg PO Q4H PRN PRN Reason: Headache/Fever or Pain Last Admin: 01/15/18 16:40 Dose: 650 mg Hydrocodone Bitart/Acetaminophen ([place] 5/325) 1 tab PO Q4H PRN PRN Reason: Moderate Pain (4-6) Hydrocodone Bitart/Acetaminophen ([place] 5/325) 2 tab PO Q4H PRN PRN Reason: Severe Pain (7-10) Ethambutol HCl (Myambutol) 1,200 mg PO QAM-[facility] Famotidine (Pepcid) 20 mg PO BID [facility] Last Admin: 01/15/18 10:42 Dose: 20 mg Folic Acid (Folvite) 1 mg PO DAILY [facility] Last Admin: 01/15/18 10:42 Dose: 1 mg Guaifenesin/Dextromethorphan (Robitussin Dm) 15 ml PO Q4H PRN PRN Reason: Cough Sodium Chloride (Normal Saline 0.9%) 1,000 mls @ 100 mls/hr IV .Q10H [facility] Last Admin: 01/15/18 16:40 Dose: 1,000 mls Ibuprofen (Motrin) 400 mg PO Q6H PRN PRN Reason: Fever Last Admin: 01/15/18 10:42 Dose: 400 mg Isoniazid (Isoniazid) 300 mg PO DAILY [facility] Last Admin: 01/15/18 10:42 Dose: 300 mg Ondansetron HCl (Zofran Odt) 4 mg PO Q6H PRN PRN Reason: Nausea/Vomiting Ondansetron HCl (Zofran) 4 mg IVP Q6H PRN PRN Reason: Nausea/Vomiting Pyrazinamide (Pyrazinamide) 1,500 mg PO DAILY [facility] Last Admin: 01/15/18 10:42 Dose: 1,500 mg Rifampin (Rifadin) 600 mg PO DAILY [facility] Last Admin: 01/15/18 10:41 Dose: 600 mg Sodium Chloride (Flush - Normal Saline) 10 ml IVF Q12HR [facility] Last Admin: 01/15/18 10:43 Dose: Not Given Sodium Chloride (Flush - Normal Saline) 10 ml IVF PRN PRN PRN Reason: Saline Flush Zolpidem Tartrate (Ambien) 5 mg PO HSPRN PRN PRN Reason: Insomnia
[2018-01-16] MEDS: Acetaminophen 325 MG TAB PO PRN ×2 (00:55→17:03)
[2018-01-16] MEDS: pyridOXINE 50 MG (B6) TAB PO SCH (09:21)
[2018-01-16] MEDS: Folic Acid 1 MG TAB PO SCH (09:21)
[2018-01-16] MEDS: Ethambutol HCl 400 MG TAB PO SCH (09:21)
[2018-01-16] MEDS: Isoniazid 100 MG TAB PO SCH (09:23)
[2018-01-16] MEDS: Pyrazinamide 500 MG TAB PO SCH (09:24)
[2018-01-16] MEDS: Rifampin 300 MG CAP PO SCH (09:25)
[2018-01-16] MEDS ORDERED: ISOVUE-370 76%-LOCM 1 ML ONE (10:48)
[2018-01-16] MEDS: Famotidine 20 MG TAB PO SCH ×2 (11:54→21:25)
--- NOTE | 2018-01-16 12:53 | PDOC.PN ---
- Subjective Encounter Start Date: 01/16/18 Encounter Start Time: 09:40 Subjective: c/o loss of appetite, no cough -: abd pain is better - Objective Resuscitation Status: Resuscitation Status FULL:Full Resuscitation MAR Reviewed: Yes Vital Signs & Weight: Vital Signs (12 hours) Temp Pulse Resp BP BP Pulse Ox 01/16/18 11:00 100.4 F H 129 H 20 116/77 94 L 01/16/18 07:54 99.3 F 124 H 20 121/83 96 01/16/18 06:06 98.8 F 110 H 18 114/75 98 01/16/18 02:13 99.4 F 115 H Weight Weight 174 lb 1.6 oz I&O: 01/15/18 01/16/18 01/17/18 06:59 06:59 06:59 Intake Total 2069 2219 Balance 2069 2219 Result Diagrams: 01/13/18 05:06 01/13/18 05:06 Phys Exam - Physical Examination HEENT: PERRLA, moist MMs Neck: no JVD, supple Respiratory: no wheezing, no rales Cardiovascular: RRR, no significant murmur Gastrointestinal: soft, non-tender, positive bowel sounds Musculoskeletal: no edema, pulses present Neurological: non-focal, moves all 4 limbs Psychiatric: normal affect, A&O x 3 Dx/Plan (1) Tuberculosis, 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 (2) Abdominal pain Code(s): R10.9 - UNSPECIFIED ABDOMINAL PAIN Status: Acute Qualifiers: Abdominal location: left lower quadrant Qualified Code(s): R10.32 - Left lower quadrant pain Comment: Improved now. (3) Ascites Code(s): R18.8 - OTHER ASCITES Status: Chronic Qualifiers: Ascites type: other type Qualified Code(s): R18.8 - Other ascites Comment: s/p paracentesis x2. 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 Review of Systems - Medications/Allergies Allergies/Adverse Reactions: Allergies Allergy/AdvReac Type Severity Reaction Status Date / Time No Known Drug Allergies Allergy Verified 01/12/18 02:18 Medications: Current Medications Acetaminophen (Tylenol) 650 mg PO Q4H PRN PRN Reason: Headache/Fever or Pain Last Admin: 01/16/18 00:55 Dose: 650 mg Hydrocodone Bitart/Acetaminophen ([place] 5/325) 1 tab PO Q4H PRN PRN Reason: Moderate Pain (4-6) Hydrocodone Bitart/Acetaminophen ([place] 5/325) 2 tab PO Q4H PRN PRN Reason: Severe Pain (7-10) Ethambutol HCl (Myambutol) 1,200 mg PO QA-[facility] Last Admin: 01/16/18 09:21 Dose: 1,200 mg Famotidine (Pepcid) 20 mg PO BID [facility] Last Admin: 01/16/18 11:54 Dose: 20 mg Folic Acid (Folvite) 1 mg PO DAILY [facility] Last Admin: 01/16/18 09:21 Dose: 1 mg Guaifenesin/Dextromethorphan (Robitussin Dm) 15 ml PO Q4H PRN PRN Reason: Cough Sodium Chloride (Normal Saline 0.9%) 1,000 mls @ 100 mls/hr IV .Q10H [facility] Last Admin: 01/15/18 20:08 Dose: 1,000 mls Ibuprofen (Motrin) 400 mg PO Q6H PRN PRN Reason: Fever Last Admin: 01/15/18 10:42 Dose: 400 mg Isoniazid (Isoniazid) 300 mg PO DAILY [facility] Last Admin: 01/16/18 09:23 Dose: 300 mg Ondansetron HCl (Zofran Odt) 4 mg PO Q6H PRN PRN Reason: Nausea/Vomiting Ondansetron HCl (Zofran) 4 mg IVP Q6H PRN PRN Reason: Nausea/Vomiting Pyrazinamide (Pyrazinamide) 1,500 mg PO DAILY [facility] Last Admin: 01/16/18 09:24 Dose: 1,500 mg Pyridoxine HCl (Vitamin B 6) 50 mg PO DAILY [facility] Last Admin: 01/16/18 09:21 Dose: 50 mg Rifampin (Rifadin) 600 mg PO DAILY [facility] Last Admin: 01/16/18 09:25 Dose: 600 mg Sodium Chloride (Flush - Normal Saline) 10 ml IVF Q12HR [facility] Last Admin: 01/16/18 09:27 Dose: Not Given Sodium Chloride (Flush - Normal Saline) 10 ml IVF PRN PRN PRN Reason: Saline Flush Zolpidem Tartrate (Ambien) 5 mg PO HSPRN PRN PRN Reason: Insomnia
--- NOTE | 2018-01-16 13:47 | PRG ---
DATE OF SERVICE: 01/16/2018 She is feeling somewhat better, a little bit tachycardic. No chest pain, abdominal pain or diarrhea. OBJECTIVE: VITAL SIGNS: T-max 102.9 on 01/15/2018, seems like the temperature has decreased somewhat over the p ast 24 hours. BP 116/77, respiratory rate 18-20, O2 sat 94-96%. GENERAL: Awake, alert. LUNGS: With symmetric clear breath sounds. HEART: S1, S2, regular rate. ABDOMEN: Soft, nontender. EXTREMITIES: Moves extremities equally. LABORATORY DATA: White cell count 3.7, hemoglobin 10.8, platelets 182. Chemistry not remarkable exc ept for bilirubin of 1.7. C. diff antigen and toxin negative. Echocardiogram with moderate localize d pericardial effusion. Radiologist recommended a CT to further evaluate the pericardial effusion. 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 Pericarditis is a rare manifestati on of tuberculosis and sometimes pericardial window becomes necessary. Corticosteroids might be of s ome benefit sometimes in preventing further accumulation of fluid. If she truly has tuberculous jacinto carditis then the concern with the eventual development of constrictive pericarditis becomes a concer n. I have discussed the case with the Health Department. They will be able to start treating her on under directly observed therapy; however, we will have to resolve the issue of the pericard ial effusion first.
[2018-01-16 14:33] LABS: BHCG - Serum Negative (NEGATIVE); Pregs Control Background? CLEAR/WHITE (CLR/WHITE); Pregs Control Bar Appear? YES (CONTROL BAR)
--- NOTE | 2018-01-16 15:49 | CT ---
CT CHEST WITH IV CONTRAST 01/16/18 HISTORY: Tuberculosis with moderate pericardial effusion. FINDINGS: Comparison is made with the exam of 12/07/17. Mediastinal lymphadenopathy is again seen. The right hilar mass is again noted with interval developm ent of right pleural effusion which appears somewhat loculated. Adjacent infiltrate/atelectatic schmitt es are noted. The left pleural effusion noted on the previous exam has resolved in the interim. A tin y pericardial effusion is present. Upper abdominal tomograms demonstrate low density lesions in the l iver which were see on the previous study. A 15 mm hyperenhancing focus in the left lobe of the liver is stable since 12/27/17. The right pleural effusion is new since 12/07/17 but was seen on the CT abdo men of 12/27/17. The left pleural effusion was seen on the CT abdomen of 12/27/17 but has resolved in t he interim. Upper abdominal tomograms also demonstrate ascites. IMPRESSION: 1. Moderate right sided pleural effusion with probable loculations. 2. Mediastinal lymphadenopathy and right hilar mass/lymphadenopathy. 3. Trace pericardial effusion. 4. Ascites. POS: [facility]
[2018-01-16] MEDS: Sodium Chloride 0.9% 1,000 ML IV SCH (16:59)
[2018-01-17] MEDS: Acetaminophen 325 MG TAB PO PRN (03:21)
[2018-01-17] MEDS: Sodium Chloride 0.9% 1,000 ML IV SCH (03:21)
[2018-01-17] MEDS: Isoniazid 100 MG TAB PO SCH (08:23)
[2018-01-17] MEDS: Pyrazinamide 500 MG TAB PO SCH (08:23)
[2018-01-17] MEDS: pyridOXINE 50 MG (B6) TAB PO SCH (08:24)
[2018-01-17] MEDS: Folic Acid 1 MG TAB PO SCH (08:24)
[2018-01-17] MEDS: Famotidine 20 MG TAB PO SCH ×2 (08:24→08:30)
[2018-01-17] MEDS: Ethambutol HCl 400 MG TAB PO SCH (08:24)
[2018-01-17] MEDS: Rifampin 300 MG CAP PO SCH (08:24)
--- NOTE | 2018-01-17 12:09 | PDOC.PN ---
- Subjective Encounter Start Date: 01/17/18 Encounter Start Time: 09:30 Subjective: no sob, is amb in room -: lives with her mom - Objective Resuscitation Status: Resuscitation Status FULL:Full Resuscitation MAR Reviewed: Yes Vital Signs & Weight: Vital Signs (12 hours) Temp Pulse Resp BP BP Pulse Ox 01/17/18 10:46 100.9 F H 120 H 18 109/73 92 L 01/17/18 08:00 98.3 F 106 H 20 95 01/17/18 07:46 98.3 F 106 H 20 101/68 95 01/17/18 05:05 99.1 F 109 H 16 111/73 96 01/17/18 03:25 102.7 F H 127 H 20 118/72 97 Weight Weight 174 lb 1.6 oz I&O: 01/16/18 01/17/18 01/18/18 06:59 06:59 06:59 Intake Total 2220 2240 Balance 2220 2240 Result Diagrams: 01/13/18 05:06 01/13/18 05:06 Phys Exam - Physical Examination HEENT: PERRLA, moist MMs Neck: no JVD, supple Respiratory: no wheezing, no rales Cardiovascular: RRR, no significant murmur Gastrointestinal: soft, non-tender, positive bowel sounds Musculoskeletal: no edema, pulses present Neurological: non-focal, moves all 4 limbs Psychiatric: normal affect, A&O x 3 Dx/Plan (1) Tuberculosis, 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 (2) Abdominal pain Code(s): R10.9 - UNSPECIFIED ABDOMINAL PAIN Status: Acute Qualifiers: Abdominal location: left lower quadrant Qualified Code(s): R10.32 - Left lower quadrant pain Comment: Improved now. (3) Ascites Code(s): R18.8 - OTHER ASCITES Status: Chronic Qualifiers: Ascites type: other type Qualified Code(s): R18.8 - Other ascites Comment: s/p paracentesis x2. Followup culture Posiitve for TB (4) Mediastinal lymphadenopathy Code(s): R59.0 - LOCALIZED ENLARGED LYMPH NODES Status: Acute - Plan d/w , marcela pt home -: CT shows trace pericardial effusion, right pleural effusion (loc) -: counselled pt to eat high protein diet, med complaince -: d/w cm to inform health dept to start DOT from am * . Review of Systems - Medications/Allergies Allergies/Adverse Reactions: Allergies Allergy/AdvReac Type Severity Reaction Status Date / Time No Known Drug Allergies Allergy Verified 01/12/18 02:18 Medications: Current Medications Acetaminophen (Tylenol) 650 mg PO Q4H PRN PRN Reason: Headache/Fever or Pain Last Admin: 01/17/18 03:21 Dose: 650 mg Hydrocodone Bitart/Acetaminophen ([place] 5/325) 1 tab PO Q4H PRN PRN Reason: Moderate Pain (4-6) Hydrocodone Bitart/Acetaminophen ([place] 5/325) 2 tab PO Q4H PRN PRN Reason: Severe Pain (7-10) Ethambutol HCl (Myambutol) 1,200 mg PO QA-[facility] Last Admin: 01/17/18 08:24 Dose: 1,200 mg Famotidine (Pepcid) 20 mg PO BID [facility] Last Admin: 01/17/18 08:30 Dose: Not Given Folic Acid (Folvite) 1 mg PO DAILY [facility] Last Admin: 01/17/18 08:24 Dose: 1 mg Guaifenesin/Dextromethorphan (Robitussin Dm) 15 ml PO Q4H PRN PRN Reason: Cough Ibuprofen (Motrin) 400 mg PO Q6H PRN PRN Reason: Fever Last Admin: 01/15/18 10:42 Dose: 400 mg Isoniazid (Isoniazid) 300 mg PO DAILY [facility] Last Admin: 01/17/18 08:23 Dose: 300 mg Ondansetron HCl (Zofran Odt) 4 mg PO Q6H PRN PRN Reason: Nausea/Vomiting Ondansetron HCl (Zofran) 4 mg IVP Q6H PRN PRN Reason: Nausea/Vomiting Pyrazinamide (Pyrazinamide) 1,500 mg PO DAILY [facility] Last Admin: 01/17/18 08:23 Dose: 1,500 mg Pyridoxine HCl (Vitamin B 6) 50 mg PO DAILY [facility] Last Admin: 01/17/18 08:24 Dose: 50 mg Rifampin (Rifadin) 600 mg PO DAILY [facility] Last Admin: 01/17/18 08:24 Dose: 600 mg Sodium Chloride (Flush - Normal Saline) 10 ml IVF Q12HR [facility] Last Admin: 01/17/18 08:24 Dose: 10 ml Sodium Chloride (Flush - Normal Saline) 10 ml IVF PRN PRN PRN Reason: Saline Flush Zolpidem Tartrate (Ambien) 5 mg PO HSPRN PRN PRN Reason: Insomnia
[2018-01-17 15:36] VITALS: BP 128/87; TEMP 102.4
--- NOTE | 2018-01-18 13:44 | DIS ---
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 PROCEDURES DONE DURING HOSPITALIZATION: CT chest done on the showed moderate right-sided pleural effusion with probable loculations, mediastinal lymphadenopathy and right hilar mass/lymphadenopathy , trace pericardial effusion. Ascites was seen. Echo with 2D Doppler showed an EF of 55%, moderate localized pericardial effusion was seen. Sputum 3 samples were sent for AFB, no acid-fast bacilli we re seen on the concentrated specimen. Culture is pending. Stool for C. diff was negative. Blood cu ltures x4, one obtained on 01/11/2018 and two more sets obtained on 01/13/2018, were all negative. [place] count of 3.7, H&H 11 and 34, platelet count is 182 with 79% neutrophils and 10% lymphocytes, MCV was 84, BUN 8, creatinine 0.7, AST 17, ALT 16, alkaline phosphatase 53, total bilirubin 0.8 on the d ay of admission. Serum test was negative. INPATIENT CONSULTS: Dr. Peralta for Infectious Disease. DISCHARGE MEDICATIONS: Ethambutol 1200 mg p.o. daily, Pepcid 20 mg twice daily, folic acid 1 mg himanshu y, isoniazid 300 mg p.o. daily, pyrazinamide 1500 mg p.o. daily, vitamin B6 50 mg p.o. daily, rifampi n 600 mg p.o. daily. ALLERGIES: No known drug allergies. DISCHARGE PLAN: The patient to follow up with Dr. Peralta as advised and Health Department for DOT the rapy. BRIEF COURSE DURING HOSPITALIZATION: The patient initially was sent over from Dr. Peralta' office afte r her AFB culture was positive from the ascitic fluid. She was hospitalized here on the and the patient had multiple workups done including paracentesis and lymph node biopsies. She was essential ly admitted for a peritoneal tuberculosis. The patient was placed on 4-drug therapy along with vitam in B6. She is tolerating 4-drug therapy for TB. She has had a CT chest done which showed loculated pleural effusions and mild pericardial effusion. Echo showed moderate pericardial effusion and hence the CAT scan was obtained to look for the same. All through her stay, the patient has had temperatu res up to 102.4 degrees Fahrenheit. She was counseled with regards to high protein diet. Health dep artment has arrange DOT therapy upon discharge on 01/17/2018. She has been cleared by Dr. Peralta for discharge. The patient was counseled with regards to adherence to medications and close follow up wi th Dr. Peralta and Health Department. Please see a [id number] documentation on [facility] for the day of discharge.
== END 2018-01-17 15:46 | disposition home or self-care (01) | DRG 372 ==
LOC: ERS 18:46 → T4-A 01-12 01:32
PROVIDERS: ADMIT Internal Medicine; ATTEND Internal Medicine
DX: A18.3 Tuberculosis of intestines, peritoneum and mesenteric glands (principal); E87.1 Hypo-osmolality and hyponatremia; R18.8 Other ascites; I31.3 Pericardial effusion (noninflammatory); J90 Pleural effusion, not elsewhere classified; K59.01 Slow transit constipation; R00.0 Tachycardia, unspecified
CPT/HCPCS: 36415; 71260; 80053; 84703; 85025; 87040; 87116; 87206; 87324; 87449; 93306; 99285; A4216

== ENCOUNTER 2018-01-31 08:17 | Inpatient (IN) | payer OTHER ==
[2018-01-31 09:04] LABS: #Basophils 0.1 thou/uL (0.0-0.2); #Eosinphils 0.1 thou/uL (0.0-0.7); #Lymphocytes 0.6 thou/uL (1.20-3.40); #Monocytes 0.5 thou/uL (0.11-0.59); #Neutrophils 2.2 thou/uL (1.40-6.50); %Basophils 1.6 % (0.0-1.0); %Eosinophils 1.7 % (0.0-10.0); %Lymphocytes 17.4 % (21.0-51.0); %Monocytes 14.4 % (0.0-10.0); %Neutrophils 64.9 % (42.0-75.0); Hemoglobin 11.6 g/dL (12.0-16.0); Mean Corpuscular HGB CONC 32.6 g/dL (32.0-36.0); Mean Corpuscular Hemoglobin 27.2 pg (27.0-31.0); Mean Corpuscular Volume 83.5 fL (78.0-98.0); Mean Platelet Volume 6.8 fL (7.4-10.4); Platelet Count 409 thou/uL (130-400); RBC Distribution Width 17.9 % (11.5-14.5); Red Blood Cell (RBC) Count 4.25 mill/uL (4.20-5.40); White Blood Cell (WBC) Count 3.4 thou/uL (4.8-10.8)
--- NOTE | 2018-01-31 09:06 | RAD ---
SINGLE VIEW CHEST: Date: 01/31/18 COMPARISON: 12/18/17. HISTORY: Cough. FINDINGS: Single view of the chest shows a normal sized cardiomediastinal silhouette. The endotracheal tube has been removed. There is a small right pleural effusion with adjacent atelectasis. IMPRESSION: Small right pleural effusion with adjacent atelectasis. POS: [facility]
[2018-01-31 09:07] LABS: Bilirubin Moderate (Negative); Blood, Urine Negative (Negative); Clarity TURBID (Clear); Glucose, Urine (Dipstick) Negative (Negative); Leukocyte Small (Negative); Nitrite Positive (Negative); Protein, Urine (Dipstick) 30 mg/dL (Neg-Trace); Specific Gravity, Urine 1.029 (1.002-1.036); pH, Urine 5.5 (5.0-9.0)
[2018-01-31 09:10] LABS: Pathc Cast-AUWi Flag 13.37 (0-2.49); Yeast-AUWi Flag 45.2 (0-25.0)
[2018-01-31 09:12] LABS: Pregnancy Test - Urine (BHCG) Negative (Negative); Pregu Control Background? CLEAR/WHITE (CLR/WHITE); Pregu Control Bar Appear? YES (CONTROL BAR); Specific Gravity 1.029 (1.002-1.036)
[2018-01-31 09:22] LABS: Bacteria/HPF 1+ HPF (None Seen); Hyaline Casts/LPF 0-3 HYALINE CAST LPF (0-3 Hyaline); Other Casts/LPF 4-6 COARSE GRAN LPF (0-3 Hyaline); RBC/HPF 0-3 HPF (0-3); Yeast-All Forms None Seen HPF (None Seen)
[2018-01-31 09:23] LABS: Manual Microscopic Reviewed? No Path Casts Seen
[2018-01-31 09:28] LABS: ALT (SGPT) 32 U/L (8-55); AST (SGOT) 48 U/L (5-34); Albumin 3.4 g/dL (3.5-5.0); Alkaline Phosphatase 61 U/L (40-150); Anion Gap 16 mmol/L (10-20); BUN (Urea Nitrogen) 8 mg/dL (7.0-18.7); Bilirubin, Total 0.8 mg/dL (0.2-1.2); Calc. Creatinine Clearance 0 mL/min (70-130); Carbon Dioxide 20 mmol/L (22-29); Chloride 104 mmol/L (98-107); Estimated GFR-MDRD Greater than 90; Globulin 3.7 g/dL (2.4-3.5); Glucose 102 mg/dL (70-105); Lipase 40 U/L (8-78); Protein, Total 7.1 g/dL (6.0-8.3); Sodium 136 mmol/L (136-145)
[2018-01-31 09:31] LABS: CKMB 0.2 ng/mL (0-6.6); Troponin I Less than 0.010 ng/mL (< 0.028)
[2018-01-31 09:56] LABS: PTT 31.9 SEC (22.9-36.1)
[2018-01-31 10:02] LABS: INR-International Normal Ratio 1.3; Prothrombin Time 15.8 SEC (12.0-14.7)
--- NOTE | 2018-01-31 10:15 | CT ---
CT OF THE ABDOMEN AND PELVIS WITH CONTRAST: COMPARISON: 12/27/17. HISTORY: Epigastric abdominal pain with nausea, vomiting, and diarrhea. The patient recently was found to hav e acid-fast bacilli and peritoneal fluid consistent with extrapulmonary tuberculosis. TECHNIQUE: Multiple contiguous axial images were obtained in a CT of the abdomen and pelvis with contrast. Mildred nal reformats were performed. FINDINGS: There is a moderate amount of ascites. No free air is seen in the abdomen or pelvis. There is thick ening of the omentum and omental caking, unchanged. There may be slight thickening of the wall of th e small bowel which is normal in caliber. The colon is unremarkable. The liver, gallbladder, kidneys, adrenal glands, spleen, and pancreas are unremarkable. No abdominal adenopathy is seen. There is a hypodensity measuring 2.3 cm emanating from the uterus. The osseous structures are unrema rkable. The abdominal wall soft tissues are unremarkable. There is a right hilar mass adjacent to the heart. There is a loculated right pleural effusion in th e right lung base. IMPRESSION: 1. Stable omental caking and peritoneal fluid. This can be secondary to an infectious process such as tuberculosis or secondary to malignancy. 2. Right pleural effusion and right hilar mass as above, unchanged. 3. Uterine fibroid. POS: [facility]
[2018-01-31] MEDS ORDERED: Ondansetron HCl/PF 4 MG/2 ML Vial ONE (10:48)
[2018-01-31] MEDS ORDERED: Water For Inject, Bacteriostat 30 ML ONE (10:56)
[2018-01-31] MEDS ORDERED: ISOVUE-370 76%-LOCM 1 ML ONE (13:08)
[2018-01-31] MEDS ORDERED: Guaifenesin DM 100-10/5 ML UDCUP PO PRN (14:14)
[2018-01-31] MEDS ORDERED: Ondansetron HCl/PF 4 MG/2 ML Vial IVP PRN (14:14)
[2018-01-31 16:10] VITALS: BMI 25.1
[2018-01-31] MEDS: Sodium Chloride 0.9% 1,000 ML IV SCH (16:26)
--- NOTE | 2018-01-31 17:55 | HP ---
REASON FOR ADMISSION: Intractable nausea, vomiting, unable to take TB medications. HISTORY OF PRESENT ILLNESS: The patient gives history of starting to have nausea from Sunday. She couldn't keep anything down, nor was she having any appetite. This happened on Sunday. The health worker who came to give her DOT therapy for TB but did not give her medications due to her physical condition. This got worse yesterday and patient has been progressively getting weaker as she has not had anything to eat from last 3 days now. The patient has significant history of peritoneal tuberculosis and is on 4 medications for the same. Her last bowel movement was yesterday. The patient states she has been having loose stools at least 2-3 per day from the time she was diagnosed with peritoneal tuberculosis. No blood or mucus in the stool. PAST MEDICAL AND SURGICAL HISTORY: History of peritoneal tuberculosis, ascites , mediastinal lymphadenopathy, chronic abdominal pain due to tuberculosis, chronic pleural effusion. PERSONAL HISTORY: Does not abuse alcohol or drugs. No history of smoking. FAMILY HISTORY: The patient lives with her grandmother and does not know much about her parents. CURRENT MEDICATIONS: The patient is on ethambutol 1200 mg p.o. daily, rifampin 600 mg p.o. daily, pyrazinamide 1500 mg p.o. daily, isoniazid 300 mg p.o. daily , vitamin B6 50 mg p.o. daily, folic acid 1 mg p.o. b.i.d., Pepcid 20 mg p.o. twice daily. ALLERGIES: No known drug allergies. CODE STATUS: FULL. REVIEW OF SYSTEMS: The following complete review of systems was negative, unless otherwise mentioned in the HPI or below: Constitutional: Weight loss or gain, ability to conduct usual activities. Skin: Rash, itching. Eyes: Double vision, pain. ENT/Mouth: Nose bleeding, neck stiffness, pain, tenderness. Cardiovascular: Palpitations, dyspnea on exertion, orthopnea. Respiratory: Shortness of breath, wheezing, cough, hemoptysis, fever or night sweats. Gastrointestinal: Poor appetite, abdominal pain, heartburn, nausea, vomiting, constipation, or diarrhea. Genitourinary: Urgency, frequency, dysuria, nocturia. Musculoskeletal: Pain, swelling. Neurologic/Psychiatric: Anxiety, depression. Allergy/Immunologic: Skin rash, bleeding tendency. PHYSICAL EXAMINATION: GENERAL: The patient is a 28-year-old female who is currently not in any acute distress. VITAL SIGNS: Blood pressure 106/74, pulse 140 per minute, respiratory rate 22 per minute, temperature 99.2 degrees Fahrenheit, saturating 95% on room air. NECK: Supple, no elevated JVD. HEENT: EYES: Extraocular muscles intact. Pupils reacting to light. ORAL CAVITY: Mucous membranes are dry. No exudates or congestion. CARDIOVASCULAR SYSTEM: S1, S2 heard. Regular rhythm. RESPIRATORY SYSTEM: Air entry 1+ bilateral. Scattered rhonchi plus bilateral. No wheezes. ABDOMEN: There is mild tenderness in the epigastric area. No rigidity or guarding with mild ascites. No organomegaly felt. EXTREMITIES: No peripheral edema or calf tenderness. VASCULAR SYSTEM: Peripheral pulses 2+ bilateral, no ischemic ulcerations or gangrene. CENTRAL NERVOUS SYSTEM: No gross focal deficits noted. The patient is alert, awake, oriented well. PSYCHIATRIC SYSTEM: The patient's mood is euthymic. No hallucinations or delusions. IMAGING DATA AND LABORATORY DATA: CT of the abdomen and pelvis with contrast done showed stable omental caking and peritoneal fluid, right pleural effusion and right hilar mass which have remained unchanged, uterine fibroid. Chest x- ray done shows small right pleural effusion with adjacent atelectasis. White count of 3, hemoglobin and hematocrit 11 and 35, platelet count 409, MCV is 83 with 64% neutrophils. PT/INR 15 and 1.3, PTT 31, serum bicarbonate 20, BUN 8, creatinine 0.7, lactic acid 1.5, total bilirubin 0.8, AST 48, ALT 32. First set of cardiac enzymes are negative. Lipase is 40, albumin is 3.4. UA shows positive nitrite, small leukocyte esterase and 1+ bacteria. Urine test is negative. CLINICAL IMPRESSION AND PLAN: The patient will be admitted to medical floor for intractable nausea and vomiting with significant history of peritoneal tuberculosis and moderate dehydration. The patient likely also has a urinary tract infection. She will be gently hydrated with normal saline at 80 mL per hour. She will also be on Protonix 40 mg twice daily. We will start her back on her for TB medications including ethambutol, pyrazinamide, isoniazid and rifampin. Dr. Peralta has been consulted from ER and has requested that patient be started on steroids. We will consult Dr. Gregory Wade who has seen the patient in the past to rule out peptic ulcer disease in view of patient taking very strong medications for her tuberculosis. We will also place her on Ensure 1 can 3 times daily. ORALIA
[2018-01-31] MEDS ORDERED: Metoclopramide HCl 10 MG/2 ML VIAL IVP PRN (18:10)
[2018-01-31] MEDS: Albuterol Sulfate 2.5 mg/3 ml Neb NEB SCH ×2 (18:57→23:13)
--- NOTE | 2018-01-31 20:39 | CON ---
DATE OF CONSULTATION: 01/31/2018 HISTORY OF PRESENT ILLNESS: Radha is back in the hospital. She is a 28-year-old lady whom I had re cently seen after the diagnosis of peritoneal tuberculosis. She prior to this diagnosis had no previ ous illnesses identified in her life and presented with abdominal pain and sensation of fullness, had one episode of pneumonia, treated with outpatient antimicrobial therapy and then was admitted with a chest x-ray with right middle lobe confluent infiltrate and a large hilar mass with postobstructive atelectasis, mediastinal adenopathy, abdominal pain. Abdomen and pelvis CT showed ascites. She did have lymph node biopsy in mediastinal area through the mediastinoscopy. This specimen demonstrated n ecrotizing granulomas. Although the stains were negative, the paracentesis fluid stains cultures dem onstrated acid fast bacillus which was identified as Mycobacterium tuberculosis complex by HPLC. The patient has been discharged and started on 4-drug regimen, but now she has developed the abdominal p ain and recurrent episodes of vomiting. She has been readmitted. She appears comfortable now after IV fluids. No headaches, no visual symptoms, sore throat, odynophagia, dysphagia, no cough or sputum production or chest pain. Mild to moderate abdominal pain with cramps, some diarrhea. No genitouri nary symptoms, no joint symptoms. No skin disorder. No neurological symptoms. PAST MEDICAL HISTORY: No past medical history before this diagnosis of extrapulmonary tuberculosis. PAST SURGICAL HISTORY: Negative until the mediastinoscopy was done for diagnostic purposes. SOCIAL HISTORY: She had been working in [employer]. Never a smoker. Lives in [place] with family. ALLERGIES: None. MEDICATIONS: She had been on INH, rifampin, pyrazinamide, and ethambutol plus vitamin B6. PHYSICAL EXAMINATION: VITAL SIGNS: Temperature 98.5, blood pressure 120/85, pulse 116, respirations 16, O2 sat 96%. GENERAL: Appears chronically ill, but in no acute distress. No skin lesions. Peripheral IV access. No lymphadenopathy. HEENT: Ocular movements conjugate. Sclerae white. Oral cavity normal. Numerous teeth in place in good shape. NECK: Supple, no jugular vein distention. LUNGS: Symmetric breath sounds. Fairly clear. HEART: S1, S2, regular rate. No S3, S4. ABDOMEN: Soft with mild tenderness. No ascites. EXTREMITIES: No joint inflammatory activity. No clubbing, cyanosis or edema. Moves extremities equ ally. NEUROLOGIC: Cognitive function appears to be intact. LABORATORY DATA: White cell count 3.4, hemoglobin 11.6, platelets 419 with 64% neutrophils. INR 1.3 . Sodium 136, creatinine 0.79, AST 48, ALT 32, alkaline phosphatase 61, albumin 3.4. Urinalysis 7-1 0 wbc's. C. diff antigen toxin negative from the last sample submitted a few days ago. Sputum-induc ed sample with negative acid-fast bacilli and no bacilli isolated in [address]en and pelvis CT with contrast showed moderate amount of ascites. No free air. Thickening of the omentum and omental caking unchanged. Slight thickening of the wall, there was a small bowel, but no obstruction. ASSESSMENT: Extraocular pulmonary tuberculosis with peritonitis and discharged and now readmitted wi th abdominal pain, vomiting. DISCUSSION: Patient is with peritoneal tuberculosis, can have a kind of a stormy course because of c omplications related to adhesions, intestinal obstruction, recurrent nausea and vomiting. This becom es a concern because of the inability to maintain the intake of antituberculous medication. There guido ve been series where the administration of corticosteroids has helped and decreasing the risk of thos e GI complications and I would advise starting Decadron or prednisone as well as restarting her antit uberculous medications. I am in contact with TB nurse to see if we can transfer to [facility] at least for the first few weeks to have her under close observation to make sure that we can greyson ntain the intake of antituberculous medication and decrease the risk of complications.
--- NOTE | 2018-01-31 23:28 | CON ---
DATE OF CONSULTATION: 01/31/2018 HISTORY OF PRESENT ILLNESS: Patient is a 28-year-old -French female who has seen Dr. Gregory gordon the past in 12/24/2017. At that time, she had generalized abdominal pain, constipation. She had a positive QuantiFERON gold and mediastinal lymphadenopathy as well as ascites. It was felt at that t [facility] that she needed to be seen by Infectious Disease. She has been hospitalized several times since November of this year and previous paracentesis from 12/13/2017 showed acid-fast bacilli sputum from 01/14 showed acid-fast bacilli. C. diff from 01/15/2018 was negative. Patient returned complaining of abdominal distention, nausea, and vomiting. She reports anything she eats or drinks. She throws up. She has diarrhea, most of the time. She was recently discharged on 01/23/2018. PAST MEDICAL HISTORY: Includes disseminated tuberculosis. PAST SURGICAL HISTORY: Includes mediastinoscopy. MEDICATIONS: Include vitamin B6 of 50 mg p.o. daily, rifampin 600 mg p.o. daily, pyrazinamide 1500 m g p.o. daily, isoniazid 300 mg p.o. daily, folic acid 1 mg p.o. daily, Myambutol 1200 mg p.o. daily. ALLERGIES: No known allergies. SOCIAL HISTORY: She does not smoke or drink. FAMILY HISTORY: Negative for GI or liver disease. REVIEW OF SYSTEMS: Ten systems were reviewed and were negative except for above. PHYSICAL EXAMINATION: Shows on admission. VITAL SIGNS: Temperature of 102.1. Presently, her temperature 98.5, pulse is 116, respiratory rate 16, blood pressure 123/85. HEENT: Unremarkable. NECK: Supple. CHEST: Clear. CARDIOVASCULAR: Regular rate and rhythm without murmurs or gallops. ABDOMEN: Slightly distended, but certainly not protuberant. It is nontender. Bowel sounds are pres ent and normoactive. RECTAL: Deferred. EXTREMITIES: Normal. NEUROLOGIC: Nonfocal. LABORATORY DATA: Shows a white blood cell count of 3.4, hemoglobin 11.6, hematocrit 35.5, platelet c ount 409. PT is 15.8 with an INR of 1.3. Chemistries are significant for CO2 of 20, AST of 48, albu min 3.4. Abdominal and pelvic CT showed stable omental caking and peritoneal fluid, right pleural ef fusion, and right hilar mass as above and uterine fibroid. ASSESSMENT: 1. Disseminated tuberculosis. 2. Ascites secondary to #1. 3. Nausea and vomiting secondary to ascites. 4. Dehydration. RECOMMENDATIONS: 1. Trial of metoclopramide. 2. Continue tuberculosis treatment. 3. PPI.
[2018-02-01] MEDS: Sodium Chloride 0.9% 1,000 ML IV SCH ×2 (04:20→17:53)
[2018-02-01 04:32] LABS: ALT (SGPT) 28 U/L (8-55); AST (SGOT) 40 U/L (5-34); Albumin 2.8 g/dL (3.5-5.0); Alkaline Phosphatase 48 U/L (40-150); Anion Gap 14 mmol/L (10-20); BUN (Urea Nitrogen) 5 mg/dL (7.0-18.7); Bilirubin, Total 0.6 mg/dL (0.2-1.2); Calc. Creatinine Clearance 160 mL/min (70-130); Calcium 8.4 mg/dL (7.8-10.44); Carbon Dioxide 20 mmol/L (22-29); Chloride 109 mmol/L (98-107); Estimated GFR-MDRD Greater than 90; Glucose 99 mg/dL (70-105); Potassium 3.9 mmol/L (3.5-5.1); Protein, Total 5.8 g/dL (6.0-8.3); Sodium 139 mmol/L (136-145)
[2018-02-01 04:59] LABS: #Lymphocytes 0.4 thou/uL (1.20-3.40); #Monocytes 0.2 thou/uL (0.11-0.59); #Neutrophils 1.5 thou/uL (1.40-6.50); %Basophils 1.3 % (0.0-1.0); %Eosinophils 0.5 % (0.0-10.0); %Lymphocytes 18.3 % (21.0-51.0); %Monocytes 10.2 % (0.0-10.0); %Neutrophils 69.6 % (42.0-75.0); Hemoglobin 8.6 g/dL (12.0-16.0); Mean Corpuscular HGB CONC 31.8 g/dL (32.0-36.0); Mean Corpuscular Hemoglobin 26.8 pg (27.0-31.0); Mean Corpuscular Volume 84.3 fL (78.0-98.0); Mean Platelet Volume 6.9 fL (7.4-10.4); Platelet Count 301 thou/uL (130-400); Red Blood Cell (RBC) Count 3.21 mill/uL (4.20-5.40); White Blood Cell (WBC) Count 2.1 thou/uL (4.8-10.8)
[2018-02-01] MEDS: Albuterol Sulfate 2.5 mg/3 ml Neb NEB SCH ×4 (06:15→23:03)
[2018-02-01] MEDS: Rifampin 300 MG CAP PO SCH (10:35)
[2018-02-01] MEDS: Pyrazinamide 500 MG TAB PO SCH (10:35)
[2018-02-01] MEDS: Ethambutol HCl 400 MG TAB PO SCH (10:35)
[2018-02-01] MEDS: Folic Acid 1 MG TAB PO SCH (10:35)
[2018-02-01] MEDS: pyridOXINE 50 MG (B6) TAB PO SCH (10:35)
[2018-02-01] MEDS: Isoniazid 100 MG TAB PO SCH (10:35)
[2018-02-01] MEDS: Enoxaparin Sodium 40 MG/0.4 ML SYRINGE SC SCH (10:37)
--- NOTE | 2018-02-01 14:04 | PRG ---
DATE OF SERVICE: 02/01/2018 SUBJECTIVE: The patient is doing well. She is having no nausea, vomiting. She is tolerating full l iquids well. She had 1 small bowel movement today. OBJECTIVE: VITAL SIGNS: Temperature 98.1, pulse 110, respiratory rate 16, blood pressure 120/72. CHEST: Clear. CARDIOVASCULAR: Regular rate and rhythm. ABDOMEN: Soft. Diffusely tender without rebound or guarding. LABORATORY DATA: Show white blood cell count 2.1, hemoglobin 8.6, hematocrit 27.0. Chemistries are significant for chloride 109, CO2 of 20, BUN 5, AST 40, albumin 2.8. ASSESSMENT: 1. Disseminated tuberculosis. 2. Nausea, vomiting. 3. Ascites. 4. Dehydration. RECOMMENDATIONS: 1. Continue metoclopramide and will switch to elixir. 2. Continue tuberculosis treatment. 3. Continue proton-pump inhibitor.
--- NOTE | 2018-02-01 16:07 | PDOC.PN ---
- Subjective Encounter Start Date: 02/01/18 Encounter Start Time: 12:25 Subjective: no nausea now -: tolerating oral liquids per staff -: is ambulating in room - Objective Resuscitation Status: Resuscitation Status FULL:Full Resuscitation MAR Reviewed: Yes Vital Signs & Weight: Vital Signs (12 hours) Temp Pulse Resp BP Pulse Ox 02/01/18 08:28 98.1 F 110 H 16 120/72 94 L 02/01/18 08:00 98.1 F 110 H 16 94 L 02/01/18 06:15 110 H 16 98 Weight Admit Weight 165 lb 4 oz Weight 165 lb 4 oz I&O: 01/31/18 02/01/18 02/02/18 06:59 06:59 06:59 Intake Total 367 Balance 367 Result Diagrams: 02/01/18 03:42 02/01/18 03:42 Phys Exam - Physical Examination HEENT: PERRLA, moist MMs Neck: no JVD, supple Respiratory: no wheezing, no rales Cardiovascular: RRR, no significant murmur Gastrointestinal: soft, positive bowel sounds mild distention+, no rigidity or guarding Musculoskeletal: no edema, pulses present Neurological: non-focal, moves all 4 limbs Psychiatric: normal affect, A&O x 3 Dx/Plan (1) Intractable nausea and vomiting Code(s): R11.2 - NAUSEA WITH VOMITING, UNSPECIFIED Status: Acute Comment: resolving (2) Abdominal pain Code(s): R10.9 - UNSPECIFIED ABDOMINAL PAIN Status: Acute Qualifiers: Abdominal location: left lower quadrant Qualified Code(s): R10.32 - Left lower quadrant pain Comment: Improved now. 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 (5) Ascites Code(s): R18.8 - OTHER ASCITES Status: Chronic Qualifiers: Ascites type: other type Qualified Code(s): R18.8 - Other ascites Comment: had prior paracentesis x2. Followup culture Posiitve for TB - Plan hemostable -: encourage po intake, high protein diet -: is on reglan, protonix and tb meds -: to amb in room as tolerated -: dc planning to [facility] [place] is pending, may not happen till sunday? * . Review of Systems - Medications/Allergies Allergies/Adverse Reactions: Allergies Allergy/AdvReac Type Severity Reaction Status Date / Time No Known Drug Allergies Allergy Verified 01/12/18 02:18 Medications: Current Medications Acetaminophen (Tylenol) 650 mg PO Q4H PRN PRN Reason: Headache/Fever or Pain Albuterol Sulfate (Ventolin) 2.5 mg NEB [id number] [facility] Last Admin: 02/01/18 13:27 Dose: 2.5 mg Enoxaparin Sodium (Lovenox) 40 mg SC 0900 [facility] Last Admin: 02/01/18 10:37 Dose: Not Given Ethambutol HCl (Myambutol) 1,200 mg PO QAM-WM [facility] Last Admin: 02/01/18 10:35 Dose: 1,200 mg Folic Acid (Folvite) 1 mg PO DAILY [facility] Last Admin: 02/01/18 10:35 Dose: 1 mg Guaifenesin/Dextromethorphan (Robitussin Dm) 15 ml PO Q4H PRN PRN Reason: Cough Sodium Chloride (Normal Saline 0.9%) 1,000 mls @ 80 mls/hr IV .[id number] [facility] Last Admin: 02/01/18 04:20 Dose: 1,000 mls Isoniazid (Isoniazid) 300 mg PO DAILY [facility] Last Admin: 02/01/18 10:35 Dose: 300 mg Methylprednisolone Sodium Succinate (Solu-Medrol) 20 mg IVP Q8HR [facility] Last Admin: 02/01/18 15:15 Dose: 20 mg Metoclopramide HCl (Reglan) 10 mg PO ACHS [facility] Morphine Sulfate (Morphine) 2 mg SLOW IVP Q4H PRN PRN Reason: Pain Ondansetron HCl (Zofran) 4 mg IVP Q6H PRN PRN Reason: Nausea/Vomiting Pantoprazole Sodium (Protonix) 40 mg PO BID [facility] Last Admin: 02/01/18 10:35 Dose: 40 mg Pyrazinamide (Pyrazinamide) 1,500 mg PO DAILY [facility] Last Admin: 02/01/18 10:35 Dose: 1,500 mg Pyridoxine HCl (Vitamin B 6) 50 mg PO DAILY [facility] Last Admin: 02/01/18 10:35 Dose: 50 mg Rifampin (Rifadin) 600 mg PO DAILY [facility] Last Admin: 02/01/18 10:35 Dose: 600 mg
[2018-02-01] MEDS: Metoclopramide 10 MG/10 ML UDCUP PO SCH ×2 (17:50→20:23)
[2018-02-02] MEDS: Sodium Chloride 0.9% 1,000 ML IV SCH ×3 (04:42→21:21)
[2018-02-02] MEDS: Albuterol Sulfate 2.5 mg/3 ml Neb NEB SCH ×4 (07:06→23:40)
[2018-02-02] MEDS: Metoclopramide 10 MG/10 ML UDCUP PO SCH ×4 (08:44→21:22)
[2018-02-02] MEDS: Enoxaparin Sodium 40 MG/0.4 ML SYRINGE SC SCH (08:45)
[2018-02-02] MEDS: Ethambutol HCl 400 MG TAB PO SCH (08:45)
[2018-02-02] MEDS: Folic Acid 1 MG TAB PO SCH ×2 (08:45→11:48)
[2018-02-02] MEDS: Pyrazinamide 500 MG TAB PO SCH (08:46)
[2018-02-02] MEDS: Rifampin 300 MG CAP PO SCH (08:46)
[2018-02-02] MEDS: pyridOXINE 50 MG (B6) TAB PO SCH (08:46)
[2018-02-02] MEDS: Isoniazid 100 MG TAB PO SCH (08:46)
--- NOTE | 2018-02-02 12:57 | PDOC.PN ---
- Subjective Encounter Start Date: 02/02/18 Encounter Start Time: 11:00 Subjective: tolerating liq diet, no nausea -: no new complaints, no sob -: is amb in room - Objective Resuscitation Status: Resuscitation Status FULL:Full Resuscitation MAR Reviewed: Yes Vital Signs & Weight: Vital Signs (12 hours) Temp Pulse Resp BP Pulse Ox 02/02/18 12:05 98.2 F 93 16 109/74 93 L 02/02/18 08:21 98.4 F 96 16 129/81 95 02/02/18 08:00 98.4 F 96 16 95 02/02/18 07:06 112 H 16 97 Weight Admit Weight 165 lb 4 oz Weight 165 lb 4 oz I&O: 02/01/18 02/02/18 02/03/18 06:59 06:59 06:59 Intake Total 367 1472 Balance 367 1472 Result Diagrams: 02/01/18 03:42 02/01/18 03:42 Phys Exam - Physical Examination HEENT: PERRLA, moist MMs Neck: no JVD, supple Respiratory: no wheezing, no rales Cardiovascular: RRR, no significant murmur Gastrointestinal: soft, non-tender, positive bowel sounds Musculoskeletal: no edema, pulses present Neurological: non-focal, moves all 4 limbs Psychiatric: normal affect, A&O x 3 Dx/Plan (1) Intractable nausea and vomiting Code(s): R11.2 - NAUSEA WITH VOMITING, UNSPECIFIED Status: Resolved (2) Abdominal pain Code(s): R10.9 - UNSPECIFIED ABDOMINAL PAIN Status: Acute Qualifiers: Abdominal location: left lower quadrant Qualified Code(s): R10.32 - Left lower quadrant pain Comment: Improved now. 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 (5) Ascites Code(s): R18.8 - OTHER ASCITES Status: Chronic Qualifiers: Ascites type: other type Qualified Code(s): R18.8 - Other ascites Comment: had prior paracentesis x2. Followup culture Posiitve for TB - Plan tolerating liq diet, adv to solid diet -: encourage high protein diet -: is taking anti TB meds -: dc plan per advice * . Review of Systems - Medications/Allergies Allergies/Adverse Reactions: Allergies Allergy/AdvReac Type Severity Reaction Status Date / Time No Known Drug Allergies Allergy Verified 01/12/18 02:18 Medications: Current Medications Acetaminophen (Tylenol) 650 mg PO Q4H PRN PRN Reason: Headache/Fever or Pain Albuterol Sulfate (Ventolin) 2.5 mg NEB [id number] [facility] Last Admin: 02/02/18 07:06 Dose: 2.5 mg Enoxaparin Sodium (Lovenox) 40 mg SC 0900 [facility] Last Admin: 02/02/18 08:45 Dose: Not Given Ethambutol HCl (Myambutol) 1,200 mg PO QAM-WM [facility] Last Admin: 02/02/18 08:45 Dose: 1,200 mg Folic Acid (Folvite) 1 mg PO DAILY [facility] Last Admin: 02/02/18 11:48 Dose: Not Given Guaifenesin/Dextromethorphan (Robitussin Dm) 15 ml PO Q4H PRN PRN Reason: Cough Sodium Chloride (Normal Saline 0.9%) 1,000 mls @ 80 mls/hr IV .[id number] [facility] Last Admin: 02/02/18 04:42 Dose: 1,000 mls Isoniazid (Isoniazid) 300 mg PO DAILY [facility] Last Admin: 02/02/18 08:46 Dose: 300 mg Methylprednisolone Sodium Succinate (Solu-Medrol) 20 mg IVP Q8HR [facility] Last Admin: 02/02/18 04:42 Dose: 20 mg Metoclopramide HCl (Reglan) 10 mg PO ACHS [facility] Last Admin: 02/02/18 11:42 Dose: 10 mg Morphine Sulfate (Morphine) 2 mg SLOW IVP Q4H PRN PRN Reason: Pain Last Admin: 02/02/18 08:51 Dose: 2 mg Ondansetron HCl (Zofran) 4 mg IVP Q6H PRN PRN Reason: Nausea/Vomiting Pantoprazole Sodium (Protonix) 40 mg PO BID [facility] Last Admin: 02/02/18 11:48 Dose: Not Given Pyrazinamide (Pyrazinamide) 1,500 mg PO DAILY [facility] Last Admin: 02/02/18 08:46 Dose: 1,500 mg Pyridoxine HCl (Vitamin B 6) 50 mg PO DAILY [facility] Last Admin: 02/02/18 08:46 Dose: 50 mg Rifampin (Rifadin) 600 mg PO DAILY [facility] Last Admin: 02/02/18 08:46 Dose: 600 mg
--- NOTE | 2018-02-02 15:49 | PRG ---
DATE OF SERVICE: 02/02/2018 SUBJECTIVE: The patient is feeling well. She is having no nausea, vomiting. She is tolerating 75 _ ____. OBJECTIVE: VITAL SIGNS: Temperature 98.2, pulse 93, respiratory rate 16, blood pressure 109/74. CHEST: Clear. CARDIOVASCULAR: Regular rate and rhythm. ABDOMEN: Slightly protuberant, nontender, without rebound or guarding. LABORATORY DATA: No new laboratory. ASSESSMENT: 1. Disseminated tuberculosis. 2. Nausea and vomiting - well controlled on metoclopramide. RECOMMENDATIONS: 1. Continue metoclopramide. 2. Continue treatment for tuberculosis. 3. We will sign off.
[2018-02-03] MEDS: Albuterol Sulfate 2.5 mg/3 ml Neb NEB SCH ×4 (07:02→23:20)
[2018-02-03] MEDS: Enoxaparin Sodium 40 MG/0.4 ML SYRINGE SC SCH ×2 (09:02→13:21)
[2018-02-03] MEDS: Folic Acid 1 MG TAB PO SCH (09:03)
[2018-02-03] MEDS: Metoclopramide 10 MG/10 ML UDCUP PO SCH ×4 (09:04→21:28)
[2018-02-03] MEDS: pyridOXINE 50 MG (B6) TAB PO SCH (09:05)
[2018-02-03] MEDS: Pyrazinamide 500 MG TAB PO SCH (09:06)
[2018-02-03] MEDS: Ethambutol HCl 400 MG TAB PO SCH (09:06)
[2018-02-03] MEDS: Isoniazid 100 MG TAB PO SCH (09:06)
[2018-02-03] MEDS: Rifampin 300 MG CAP PO SCH (09:07)
--- NOTE | 2018-02-03 11:22 | PDOC.PN ---
- Subjective Encounter Start Date: 02/03/18 Encounter Start Time: 11:10 Subjective: no nausea or vomiting -: tolerating oral diet - Objective Resuscitation Status: Resuscitation Status FULL:Full Resuscitation MAR Reviewed: Yes Vital Signs & Weight: Vital Signs (12 hours) Temp Pulse Resp BP Pulse Ox 02/03/18 08:00 97.3 F L 82 16 97 02/03/18 07:25 97.3 F L 82 16 131/73 97 02/03/18 07:02 97 20 96 02/02/18 23:40 78 18 93 L Weight Admit Weight 165 lb 4 oz Weight 165 lb 4 oz I&O: 02/02/18 02/03/18 02/04/18 06:59 06:59 06:59 Intake Total 1472 2230 Balance 1472 2230 Result Diagrams: 02/01/18 03:42 02/01/18 03:42 Phys Exam - Physical Examination HEENT: PERRLA, moist MMs Neck: no JVD, supple Respiratory: no wheezing, no rales Cardiovascular: RRR, no significant murmur Gastrointestinal: soft, non-tender, positive bowel sounds Musculoskeletal: no edema, pulses present Neurological: non-focal, moves all 4 limbs Psychiatric: normal affect, A&O x 3 Dx/Plan (1) Intractable nausea and vomiting Code(s): R11.2 - NAUSEA WITH VOMITING, UNSPECIFIED Status: Resolved (2) Abdominal pain Code(s): R10.9 - UNSPECIFIED ABDOMINAL PAIN Status: Chronic Qualifiers: Abdominal location: left lower quadrant Qualified Code(s): R10.32 - Left lower quadrant pain Comment: Improved now. 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 (5) Ascites Code(s): R18.8 - OTHER ASCITES Status: Chronic Qualifiers: Ascites type: other type Qualified Code(s): R18.8 - Other ascites Comment: had prior paracentesis x2. Followup culture Posiitve for TB - Plan hemostable now, tolerating oral diet and taking tb meds -: dc plan per Dr.Kathryn advice, pt prefers to go to [facility] -: to amb in room as tolerated -: is being refusing lovenox shots, counselled to be active to prevent dvt * . Review of Systems - Medications/Allergies Allergies/Adverse Reactions: Allergies Allergy/AdvReac Type Severity Reaction Status Date / Time No Known Drug Allergies Allergy Verified 01/12/18 02:18 Medications: Current Medications Acetaminophen (Tylenol) 650 mg PO Q4H PRN PRN Reason: Headache/Fever or Pain Albuterol Sulfate (Ventolin) 2.5 mg NEB [id number] [facility] Last Admin: 02/03/18 07:02 Dose: 2.5 mg Enoxaparin Sodium (Lovenox) 40 mg SC 0900 [facility] Last Admin: 02/03/18 09:02 Dose: Not Given Ethambutol HCl (Myambutol) 1,200 mg PO QAM-WM [facility] Last Admin: 02/03/18 09:06 Dose: 1,200 mg Folic Acid (Folvite) 1 mg PO DAILY [facility] Last Admin: 02/03/18 09:03 Dose: Not Given Guaifenesin/Dextromethorphan (Robitussin Dm) 15 ml PO Q4H PRN PRN Reason: Cough Sodium Chloride (Normal Saline 0.9%) 1,000 mls @ 80 mls/hr IV .[id number] [facility] Last Admin: 02/02/18 21:21 Dose: 1,000 mls Isoniazid (Isoniazid) 300 mg PO DAILY [facility] Last Admin: 02/03/18 09:06 Dose: 300 mg Methylprednisolone Sodium Succinate (Solu-Medrol) 20 mg IVP Q8HR [facility] Last Admin: 02/03/18 06:08 Dose: Not Given Metoclopramide HCl (Reglan) 10 mg PO ACHS [facility] Last Admin: 02/03/18 09:04 Dose: 10 mg Morphine Sulfate (Morphine) 2 mg SLOW IVP Q4H PRN PRN Reason: Pain Last Admin: 02/03/18 10:40 Dose: 2 mg Ondansetron HCl (Zofran) 4 mg IVP Q6H PRN PRN Reason: Nausea/Vomiting Pantoprazole Sodium (Protonix) 40 mg PO BID [facility] Last Admin: 02/03/18 09:04 Dose: Not Given Pyrazinamide (Pyrazinamide) 1,500 mg PO DAILY [facility] Last Admin: 02/03/18 09:06 Dose: 1,500 mg Pyridoxine HCl (Vitamin B 6) 50 mg PO DAILY [facility] Last Admin: 02/03/18 09:05 Dose: 50 mg Rifampin (Rifadin) 600 mg PO DAILY [facility] Last Admin: 02/03/18 09:07 Dose: 600 mg
[2018-02-03] MEDS: Acetaminophen 325 MG TAB PO PRN ×2 (13:12→17:24)
[2018-02-03] MEDS: Sodium Chloride 0.9% 1,000 ML IV SCH ×2 (17:25→21:28)
[2018-02-04] MEDS: Albuterol Sulfate 2.5 mg/3 ml Neb NEB SCH ×2 (06:19→13:38)
[2018-02-04] MEDS: Metoclopramide 10 MG/10 ML UDCUP PO SCH ×2 (08:34→11:26)
[2018-02-04] MEDS: pyridOXINE 50 MG (B6) TAB PO SCH (08:34)
[2018-02-04] MEDS: Enoxaparin Sodium 40 MG/0.4 ML SYRINGE SC SCH (08:34)
[2018-02-04] MEDS: Rifampin 300 MG CAP PO SCH (08:35)
[2018-02-04] MEDS: Isoniazid 100 MG TAB PO SCH (08:35)
[2018-02-04] MEDS: Ethambutol HCl 400 MG TAB PO SCH (08:35)
[2018-02-04] MEDS: Folic Acid 1 MG TAB PO SCH (08:36)
[2018-02-04] MEDS: Pyrazinamide 500 MG TAB PO SCH (08:36)
[2018-02-04] MEDS ORDERED: Metoclopramide 10 MG/10 ML UDCUP PO PRN (12:43)
--- NOTE | 2018-02-04 12:43 | PDOC.PN ---
- Subjective Encounter Start Date: 02/04/18 Encounter Start Time: 11:00 Subjective: feels good, no nausea, is eating better - Objective Resuscitation Status: Resuscitation Status FULL:Full Resuscitation MAR Reviewed: Yes Vital Signs & Weight: Vital Signs (12 hours) Temp Pulse Resp BP Pulse Ox 02/04/18 11:09 97.8 F 119 H 16 135/91 H 92 L 02/04/18 08:34 99.1 F 119 H 16 92 L 02/04/18 08:00 99.1 F 117 H 18 114/79 93 L 02/04/18 06:19 112 H 16 94 L Weight Admit Weight 165 lb 4 oz Weight 165 lb 4 oz I&O: 02/03/18 02/04/18 02/05/18 06:59 06:59 06:59 Intake Total 2230 2399 Balance 2230 2399 Result Diagrams: 02/01/18 03:42 02/01/18 03:42 Phys Exam - Physical Examination HEENT: PERRLA, moist MMs Neck: no JVD, supple Respiratory: no wheezing, no rales Cardiovascular: RRR, no significant murmur Gastrointestinal: soft, non-tender, positive bowel sounds Musculoskeletal: no edema, pulses present Neurological: non-focal, moves all 4 limbs Psychiatric: normal affect, A&O x 3 Dx/Plan (1) Intractable nausea and vomiting Code(s): R11.2 - NAUSEA WITH VOMITING, UNSPECIFIED Status: Resolved (2) Abdominal pain Code(s): R10.9 - UNSPECIFIED ABDOMINAL PAIN Status: Chronic Qualifiers: Abdominal location: left lower quadrant Qualified Code(s): R10.32 - Left lower quadrant pain Comment: Improved now. 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 (5) Ascites Code(s): R18.8 - OTHER ASCITES Status: Chronic Qualifiers: Ascites type: other type Qualified Code(s): R18.8 - Other ascites Comment: had prior paracentesis x2. Followup culture Posiitve for TB - Plan hemostable -: dc plan per advice -: Plan was to send her to [facility] initially due to rec nausea/abd pain an -: -d inability to tolerate oral TB meds -: encourage po protein intake * . Review of Systems - Medications/Allergies Allergies/Adverse Reactions: Allergies Allergy/AdvReac Type Severity Reaction Status Date / Time No Known Drug Allergies Allergy Verified 01/12/18 02:18 Medications: Current Medications Acetaminophen (Tylenol) 650 mg PO Q4H PRN PRN Reason: Headache/Fever or Pain Last Admin: 02/03/18 17:24 Dose: 650 mg Albuterol Sulfate (Ventolin) 2.5 mg NEB [id number] [facility] Last Admin: 02/04/18 06:19 Dose: 2.5 mg Enoxaparin Sodium (Lovenox) 40 mg SC 0900 [facility] Last Admin: 02/04/18 08:34 Dose: 40 mg Ethambutol HCl (Myambutol) 1,200 mg PO QAM-WM [facility] Last Admin: 02/04/18 08:35 Dose: 1,200 mg Folic Acid (Folvite) 1 mg PO DAILY [facility] Last Admin: 02/04/18 08:36 Dose: Not Given Guaifenesin/Dextromethorphan (Robitussin Dm) 15 ml PO Q4H PRN PRN Reason: Cough Sodium Chloride (Normal Saline 0.9%) 1,000 mls @ 80 mls/hr IV .[id number] [facility] Last Admin: 02/03/18 21:28 Dose: 1,000 mls Isoniazid (Isoniazid) 300 mg PO DAILY [facility] Last Admin: 02/04/18 08:35 Dose: 300 mg Methylprednisolone Sodium Succinate (Solu-Medrol) 20 mg IVP Q8HR [facility] Last Admin: 02/04/18 05:37 Dose: 20 mg Metoclopramide HCl (Reglan) 10 mg PO ACHS [facility] Last Admin: 02/04/18 11:26 Dose: 10 mg Morphine Sulfate (Morphine) 2 mg SLOW IVP Q4H PRN PRN Reason: Pain Last Admin: 02/03/18 10:40 Dose: 2 mg Ondansetron HCl (Zofran) 4 mg IVP Q6H PRN PRN Reason: Nausea/Vomiting Pantoprazole Sodium (Protonix) 40 mg PO BID [facility] Last Admin: 02/04/18 08:36 Dose: Not Given Pyrazinamide (Pyrazinamide) 1,500 mg PO DAILY [facility] Last Admin: 02/04/18 08:36 Dose: 1,500 mg Pyridoxine HCl (Vitamin B 6) 50 mg PO DAILY [facility] Last Admin: 02/04/18 08:34 Dose: 50 mg Rifampin (Rifadin) 600 mg PO DAILY [facility] Last Admin: 02/04/18 08:35 Dose: 600 mg
[2018-02-04 17:08] VITALS: TEMP 98.4
[2018-02-04 18:05] VITALS: BP 117/78
--- NOTE | 2018-02-05 04:46 | DIS ---
DATE OF ADMISSION: 01/31/2018 DATE OF DISCHARGE: 02/04/2018 DISCHARGE DISPOSITION: To home. 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 PROCEDURES DONE DURING HOSPITALIZATION: The patient had CT of the abdomen and pelvis done with contrast showed stable omental caking and peritoneal fluid, this could be secondary to an infectious process such as tuberculosis or secondary to malignancy, right pleural effusion and right hilar mass which has remained unchanged, uterine fibroid. Chest x-ray done on the day of admission showed small right pleural effusion with adjacent atelectasis. White count of 2.1, H&H 8.6 and 27, platelet count 301 with 69% neutrophils and 18% lymphocytes. AST 40, ALT 28, alkaline phosphatase 48, total bilirubin 0.6, albumin is 2.8. Urine test was negative. INPATIENT CONSULTS: Dr. Mott for Gastroenterology, Dr. Peralta for Infectious Disease. DISCHARGE MEDICATIONS: The patient to continue ethambutol 1200 mg p.o. daily; folic acid 1 mg p.o. daily; isoniazid 300 mg p.o. daily; metoclopramide 10 mg p.o. a.c. and at bedtime p.r.n. for insomnia; Protonix 40 mg p.o. daily; prednisone 20 mg p.o. twice daily for 1 week, then 10 mg twice daily for 7 days , then 10 mg once daily for 7 days; pyrazinamide 1500 mg p.o. daily; pyridoxine 50 mg p.o. daily; rifampin 600 mg p.o. daily. ALLERGIES: No known drug allergies. DISCHARGE PLAN: The patient to follow up with Dr. Peralta in 2 weeks. BRIEF COURSE DURING HOSPITALIZATION: The patient initially got admitted with complaints of intractable nausea, vomiting, and unable to take her TB medications. The patient has known diagnosis of peritoneal tuberculosis and is on 4 anti-TB medications for the same. In view of this, she was admitted and was placed on clear liquid diet. She was also placed on scheduled Reglan, iv steroids along with Protonix. The patient responded to above measures. Her diet was slowly enhanced to solid diet prior to discharge. She has been tolerating this without nausea or vomiting. She was also continued on all 4 medications from day 1. She was on iv steroid, which has been switched over to prednisone at the time of discharge. The patient needs to follow up with Dr. Peralta in 2 weeks before she completely stops her prednisone, the current prescription is for a 3-week taper. 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 We will be letting the public health nurse know to start DOT from tomorrow. Please see a [id number] documentation on [facility] for the day of discharge. HANNAHD
== END 2018-02-04 18:44 | disposition home or self-care (01) | DRG 372 ==
LOC: ERS 08:17 → ERHOLD 11:35 → T4-B 16:02
PROVIDERS: ADMIT Internal Medicine; ATTEND Internal Medicine
DX: A18.3 Tuberculosis of intestines, peritoneum and mesenteric glands (principal); N39.0 Urinary tract infection, site not specified; R18.8 Other ascites; J90 Pleural effusion, not elsewhere classified; E86.0 Dehydration; R59.0 Localized enlarged lymph nodes
CPT/HCPCS: 36415; 71045; 74177; 80053; 81003; 81015; 81025; 82553; 83605; 83690; 84484; 85025; 85610; 85730; 87040; 87086; 87149; 93005; 94640; 96361; 96374; 96375; J1650; J2270; J2405; J2920; J7611